=== PATIENT | female | born 1980 | race Caucasian/White ===

== ENCOUNTER → 2017-09-10 | Outpatient (CLI) | payer OTHER ==
[~2017-09-10] MED LIST: ACET325 PO; ALBU90OI INH; BCP; CETI5 PO; CLARITIN10 MG PO; FAMO20 PO; L-Lysine500 M1 PO; LAMO100 PO; LORA1 PO; OMEP20ER PO; OMEP40CA12 PO; PRED20 PO; PRENZ PO; PROM25 PO; SUCR1 PO
[2017-09-16 11:58] LABS: HPV Genotype 16 Not Detected (NOTDET); HPV Genotype 18 Not Detected (NOTDET)
[2017-09-22 10:13] LABS: HPV High Risk Other Not Detected (NOTDET)
== END ==
LOC: LAB SRC 08:46 → LAB SHORT 08:46
PROVIDERS: Registered Nurse
DX: Z12.4 Encounter for screening for malignant neoplasm of cervix (principal)
CPT/HCPCS: 87624; G0123

== ENCOUNTER → 2020-07-16 | Outpatient (CLI) | payer OTHER ==
[2020-07-17 13:11] LABS: HPV 16 Negative (Negative); HPV 18 Negative (Negative); HPV OTHER HR TYPES Negative (Negative)
== END | disposition home or self-care (01) ==
LOC: LAB 11:45 → LAB SHORT 11:45
PROVIDERS: Registered Nurse
DX: Z12.4 Encounter for screening for malignant neoplasm of cervix (principal)
CPT/HCPCS: 87624; G0123

== ENCOUNTER → 2022-10-27 | Outpatient (CLI) | payer OTHER ==
[~2022-10-27] MED LIST changes: +ONDA4ODT MM
[2022-10-27 18:07] LABS: Source, Urine Clean Catch
[2022-10-27 18:13] LABS: Appearance, Urine Hazy (Clear); Bilirubin, Urine Neg (Neg); Blood, Urine 4+ (Neg); Glucose Qualitative, Urine Neg (Neg); Ketones, Urine 2+ (Neg); Leukocyte Esterase, Urine 2+ (Neg); Nitrite, Urine Pos (Neg); Protein, Urine 1+ (Neg); Urobilinogen, Urine NORM (Normal); pH, Urine 6.5 (5.0-8.0)
[2022-10-27 18:19] LABS: Color, Urine Pale Yellow (P-Yellow)
[2022-10-27 18:20] LABS: Bacteria Many /hpf; Squamous Epithelial Cells Few /hpf (Few); White Blood Cells, Urine 50-100 /hpf (0-5)
== END | disposition home or self-care (01) ==
LOC: LAB 12:30 → LAB SHORT 12:30
PROVIDERS: Registered Nurse
DX: N39.0 Urinary tract infection, site not specified (principal)
CPT/HCPCS: 81001; 87077; 87086; 87186

== ENCOUNTER 2023-07-26 11:35 | Day surgery (SDC) | payer OTHER ==
[~2023-07-26] VITALS: Ht 167.6 cm; Wt 97.2 kg
[~2023-07-26 11:35] MED LIST changes: +COENZYME Q-1030 MG PO; +FLONASE ALLERG9.9 M2; +HYDCHL25 PO; +Hair, Skin & N1 EACH PO; +METF500 PO; +METO50ER PO; +OLAN5 PO; +Prinivil10 MG PO; +ROSU10TA PO; +VALP250
[2023-07-26] MEDS ORDERED: Depakene250 MG PO (12:20)
--- NOTE | 2023-07-26 13:41 | NUR ---
07/26/23 1341 Cathie Feliciano ABDOMEN PREPPED BY [email or web address] WITH DURAPREP GELY AREA AND SURROUNDING AREA WITH POVIDONE IODINE BY [email or web address]
[2023-07-26 14:43] VITALS: BP 119/76
== END 2023-07-26 14:53 | disposition home or self-care (01) ==
LOC: ORSCSDS 11:35
PROVIDERS: Obstetrics & Gynecology
PROC: 0UT74ZZ Resection of Bilateral Fallopian Tubes, Percutaneous Endoscopic Approach (ICD-10-PCS; principal; 2023-07-26 13:00)
PROC: 0UT24ZZ Resection of Bilateral Ovaries, Percutaneous Endoscopic Approach (ICD-10-PCS; principal; 2023-07-26 13:00)
DX: Z85.3 Personal history of malignant neoplasm of breast (principal); Z17.0 Estrogen receptor positive status [ER+]; Z30.2 Encounter for sterilization; I10 Essential (primary) hypertension; F17.210 Nicotine dependence, cigarettes, uncomplicated; F31.9 Bipolar disorder, unspecified; E66.9 Obesity, unspecified; Z68.35 Body mass index [BMI] 35.0-35.9, adult; Z79.899 Other long term (current) drug therapy
CPT/HCPCS: 82947; 88305; J0171; J2250; J2795; J7120

== ENCOUNTER 2023-09-22 07:56 | Day surgery (SDC) | payer OTHER ==
[~2023-09-22] VITALS: Ht 167.6 cm; Wt 100.7 kg
[~2023-09-22 07:56] MED LIST changes: +Depakene250 MG PO; +SPIR25 PO
[2023-09-22] MEDS ORDERED: CeFAZolin Sodium 2,000 MG VIAL ONE (08:31)
[2023-09-22] MEDS ORDERED: NS 50 ML IV ONE (08:32)
[2023-09-22] MEDS ORDERED: LETROZOLE2.5 M3 PO (08:35)
[2023-09-22] MEDS ORDERED: Methylene Blue 1% 100 MG/10 ML VIAL ONE (08:38)
[2023-09-22] MEDS ORDERED: Lidocaine 1%-Epineph 1:100000 20 ML MDV ONE (08:39)
[2023-09-22] MEDS ORDERED: Ropivacaine 0.5% HCl/Pf 5 MG/ML 20ML VIAL ONE ×2 (08:41→10:41)
[2023-09-22] MEDS ORDERED: Lactated Ringer's 1,000 ML IV ONE ×3 (09:09→11:44)
[2023-09-22] MEDS ORDERED: Lidocaine HCl/Pf 1% 5 ML VIAL ONE (09:14)
--- NOTE | 2023-09-22 09:30 | NUR ---
09/22/23 0930 Di Prince PATIENT INTO PRE-OP EARLY AT 0820 TO GET VITALS DONE PRIOR TO APPOINTMENT AT IMAGING. 0920: PATIENT RETURNED FROM IMAGING.
[2023-09-22] MEDS ORDERED: Midazolam HCl 1MG / ML 2ML Vial ONE (10:17)
[2023-09-22] MEDS ORDERED: FentaNYL Citrate 50 MCG/ML 2 ML Injection ONE ×4 (10:17→12:22)
[2023-09-22] MEDS ORDERED: propofoL 20 ML IV ONE (10:17)
[2023-09-22] MEDS ORDERED: Ondansetron HCl 2 MG / ML 2ML Vial ONE ×2 (10:20→13:47)
[2023-09-22] MEDS ORDERED: Dexamethasone Sod Phos 10 MG/ML 1ML VIAL ONE (10:20)
[2023-09-22] MEDS ORDERED: Methylene Blue 1% 100 MG/10 ML VIAL XX ONE (10:51)
[2023-09-22 13:44] VITALS: BP 137/90
[2023-09-22] MEDS ORDERED: HYDROcodone 5-APAP 325 TAB ONE (13:48)
== END 2023-09-22 14:53 | disposition home or self-care (01) ==
LOC: ORSCSDS 07:56 → NM 09:00 → ORSCSDS 10:00
DX: C50.811 Malignant neoplasm of overlapping sites of right female breast (principal); C77.3 Secondary and unspecified malignant neoplasm of axilla and upper limb lymph nodes; Z17.0 Estrogen receptor positive status [ER+]; E11.9 Type 2 diabetes mellitus without complications; G47.33 Obstructive sleep apnea (adult) (pediatric); F17.210 Nicotine dependence, cigarettes, uncomplicated; Z79.84 Long term (current) use of oral hypoglycemic drugs; Z79.899 Other long term (current) drug therapy; I10 Essential (primary) hypertension; K21.9 Gastro-esophageal reflux disease without esophagitis; E78.5 Hyperlipidemia, unspecified; F31.81 Bipolar II disorder; E28.2 Polycystic ovarian syndrome; Z68.35 Body mass index [BMI] 35.0-35.9, adult
CPT/HCPCS: 38792; 76098; 82947; 88307; 88329; 88360; 88374; A9270; A9520; J0690; J1100; J2001; J2250; J2405; J2704; J2795; J3010; J7120; Q9968

== ENCOUNTER 2023-10-18 07:24 | Day surgery (SDC) | payer OTHER ==
[~2023-10-18] VITALS: Ht 167.6 cm; Wt 101.2 kg
[2023-10-18] VITALS (11 sets, daily range): BP systolic 82–134; BP diastolic 46–90
[~2023-10-18 07:24] MED LIST changes: +CeFAZolin Sodium 2,000 MG in NS 100 ML IV SCH; +LETROZOLE2.5 M3 PO; +Lactated Ringer's 1,000 ML IV SCH
[2023-10-18] MEDS ORDERED: Ipratropium/Albuterol SulF 2.5-0.5MG/3 ML Amp INH SCH (08:50)
[2023-10-18] MEDS ORDERED: propofoL 20 ML IV ONE (08:51)
[2023-10-18] MEDS ORDERED: Midazolam HCl 1MG / ML 2ML Vial ONE (08:51)
[2023-10-18] MEDS ORDERED: FentaNYL Citrate 50 MCG/ML 2 ML Injection ONE (08:51)
--- NOTE | 2023-10-18 09:06 | NUR ---
Ambulatory in Day Surgery History, Chart, Medications and Allergies reviewed before start of procedure. Pre-Op teaching done. Pt verbalizes understanding. Patient States Post-Procedure ride home has been arranged. Inspiratory/expiratory wheeze, duo-neb given per orders. Lungs clear post breathing tx.
[2023-10-18] MEDS ORDERED: Bupivacaine 0.5% HCl 5 MG/ML 30MLVIAL ONE (09:21)
[2023-10-18] MEDS ORDERED: Dexamethasone Sod Phos 10 MG/ML 1ML VIAL ONE (09:31)
[2023-10-18] MEDS ORDERED: Ketorolac Tromethamine 30mg Vial ONE (09:31)
[2023-10-18] MEDS ORDERED: Ondansetron HCl 2 MG / ML 2ML Vial ONE (09:31)
[2023-10-18] MEDS ORDERED: HYDROcodone 5-APAP 325 TAB PO PRN (10:45)
--- NOTE | 2023-10-18 11:31 | NUR ---
Discharge instructions reviewed with patient. Patient verbalizes understanding. Copy given to patient to take home. 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 Dressing C/D/I, breast binder in place. Patient States Post-Procedure ride home has been arranged. Discharged via wheelchair to private car for ride home.
[2023-11-03] MEDS ORDERED: LETR2.5 PO (12:26)
[2023-11-03] MEDS ORDERED: VITAMIN D325 MC3 PO (12:30)
== END 2023-10-18 11:30 | disposition home or self-care (01) ==
LOC: ORSCMMR 07:24 → ORD 10:00 → ORSCMMR 10:00
PROVIDERS: Surgery
PROC: 0HBT0ZZ Excision of Right Breast, Open Approach (ICD-10-PCS; principal; 2023-10-18 08:45)
DX: C50.911 Malignant neoplasm of unspecified site of right female breast (principal); R92.0 Mammographic microcalcification found on diagnostic imaging of breast; Z17.0 Estrogen receptor positive status [ER+]; G47.33 Obstructive sleep apnea (adult) (pediatric); F17.210 Nicotine dependence, cigarettes, uncomplicated; E11.9 Type 2 diabetes mellitus without complications; Z79.84 Long term (current) use of oral hypoglycemic drugs; Z79.899 Other long term (current) drug therapy; E66.9 Obesity, unspecified; Z68.35 Body mass index [BMI] 35.0-35.9, adult
CPT/HCPCS: 82947; 88307; A9270; J0690; J1100; J1885; J2250; J2405; J2704; J3010; J7120

== ENCOUNTER 2024-03-30 12:49 | Emergency (ER) | payer OTHER ==
[~2024-03-30] VITALS: Ht 167.6 cm; Wt 102.1 kg
[~2024-03-30 12:49] MED LIST changes: -CeFAZolin Sodium 2,000 MG in NS 100 ML IV SCH; +LETR2.5 PO; -Lactated Ringer's 1,000 ML IV SCH; +VITAMIN D325 MC3 PO
[2024-03-30 13:24] LABS: BASOPHILS ABSOLUTE AUTO 0.07 K/mm3 (0.00-0.23); BASOPHILS PERCENT AUTO 1 % (0-2); EOSINOPHILS ABSOLUTE AUTO 0.23 K/mm3 (0.00-0.68); EOSINOPHILS PERCENT AUTO 2 % (0-6); Hematocrit 36.6 % (33.0-51.0); Hemoglobin 12.9 g/dL (11.5-16.0); IMMATURE GRAN ABSOLUTE AUTO 0.12 K/mm3 (0.00-0.10); IMMATURE GRAN PERCENT AUTO 1 % (0-1); LYMPHOCYTES ABSOLUTE AUTO 3.02 K/mm3 (0.84-5.20); LYMPHOCYTES PERCENT AUTO 29 % (21-46); MONOCYTES ABSOLUTE AUTO 2.37 K/mm3 (0.16-1.47); MONOCYTES PERCENT AUTO 23 % (4-13); Mean Corpuscular HGB 34.8 pg (26.0-34.0); Mean Corpuscular HGB Conc 35.2 g/dL (31.5-36.5); Mean Corpuscular Volume 99 fL (80-100); Mean Platelet Volume 8.7 fL (9.1-12.4); NEUTROPHILS ABSOLUTE AUTO 4.71 K/mm3 (1.96-9.15); NEUTROPHILS PERCENT AUTO 45 % (41-73); NRBC ABSOLUTE 0.02 K/mm3 (0.00-0.02); NRBC Auto 0.2 /100 WBC (0.0-0.2); Platelet Count 319 K/mm3 (150-400); RDW Coefficient Variation 21.5 % (11.7-14.2); RDW Standard Deviation 75.9 fL (35.1-46.3); Red Blood Cell Count 3.71 M/mm3 (3.80-5.20); White Blood Cell Count 10.52 K/mm3 (4.00-11.30)
[2024-03-30 13:49] LABS: Albumin, Blood 3.5 g/dL (3.4-5.0); Albumin/Globulin Ratio 0.8 (0.8-1.8); Bilirubin, Total 0.3 mg/dL (0.1-1.0); Bun/Creatinine Ratio 10.7 (12.0-20.0); Calcium, Blood 9.7 mg/dL (8.5-10.1); Creatinine, Blood 0.56 mg/dL (0.40-1.00); Globulin, Blood 4.3 g/dL (2.2-4.0); Magnesium, Blood 1.8 mg/dL (1.6-2.4); Potassium, Blood 3.7 mmol/L (3.5-5.5); Total Protein, Blood 7.8 g/dL (6.4-8.2)
[2024-03-30] MEDS ORDERED: LORazepam 2 MG/ML 1ML Injection IV ONE ×2 (14:40→15:20)
[2024-03-30] MEDS ORDERED: IVABRADINE HCL5 MG PO (14:56)
[2024-03-30 15:05] LABS: Free Thyroxine 1.16 ng/dL (0.70-1.60); Magnesium, Blood 1.9 mg/dL (1.6-2.4); Thyroid Stimulating Hormone 0.792 uIU/mL (0.360-4.800)
[2024-03-30] MEDS ORDERED: Nicotine Polacrilex 2 MG Gum PO PRN (19:05)
[2024-03-31] VITALS: BP 115/76
== END 2024-03-31 00:46 | disposition short-term general hospital (02) ==
LOC: ER 12:49
PROVIDERS: Emergency Medicine; Physician Assistant
DX: I60.9 Nontraumatic subarachnoid hemorrhage, unspecified (principal); C79.31 Secondary malignant neoplasm of brain; C79.51 Secondary malignant neoplasm of bone; C50.911 Malignant neoplasm of unspecified site of right female breast; K21.9 Gastro-esophageal reflux disease without esophagitis; F17.210 Nicotine dependence, cigarettes, uncomplicated; Z79.84 Long term (current) use of oral hypoglycemic drugs; Z79.51 Long term (current) use of inhaled steroids; Z79.899 Other long term (current) drug therapy; Z91.041 Radiographic dye allergy status; Z91.018 Allergy to other foods
CPT/HCPCS: 70450; 80053; 81025; 83735; 84439; 84443; 85025; 93005; 93010; 96365; 96375; 99285-25; A9270; J1100; J2060

== ENCOUNTER → 2024-04-08 | Outpatient (CLI) | payer OTHER ==
[~2024-04-08] MED LIST changes: +IVABRADINE HCL5 MG PO
== END | disposition home or self-care (01) ==
LOC: LAB SHORT 10:33 → LAB 10:33
DX: N39.0 Urinary tract infection, site not specified (principal)
CPT/HCPCS: 87077; 87086; 87186

== ENCOUNTER → 2024-06-12 | Outpatient (CLI) | payer OTHER | END | disposition home or self-care (01) | LOC: LAB 09:45 → LAB SHORT 09:45 | DX: T81.49XA Infection following a procedure, other surgical site, initial encounter (principal) | CPT/HCPCS: 87070; 87205 ==

== ENCOUNTER → 2024-06-14 | Outpatient (CLI) | payer OTHER | END | disposition home or self-care (01) | LOC: LAB SHORT 15:11 → LAB 15:11 | DX: R30.0 Dysuria (principal) | CPT/HCPCS: 87077; 87086; 87186 ==

== ENCOUNTER 2024-07-27 01:19 | Day surgery (SDC) | payer OTHER | END 2024-07-27 23:00 | disposition home or self-care (01) | LOC: WOUND 01:19 | DX: T81.31XD Disruption of external operation (surgical) wound, not elsewhere classified, subsequent encounter (principal); F17.200 Nicotine dependence, unspecified, uncomplicated; G47.30 Sleep apnea, unspecified; E11.9 Type 2 diabetes mellitus without complications; C50.111 Malignant neoplasm of central portion of right female breast; Z91.041 Radiographic dye allergy status; Y83.8 Other surgical procedures as the cause of abnormal reaction of the patient, or of later complication, without mention of misadventure at the time of the procedure | CPT/HCPCS: G0463 ==

== ENCOUNTER → 2024-07-29 | Outpatient (CLI) | payer OTHER ==
[2024-07-29 14:39] LABS: Source, Urine Clean Catch
[2024-07-29 14:54] LABS: Appearance, Urine Clear (Clear); Color, Urine Yellow (P-Yellow); Leukocyte Esterase, Urine Trace (Neg); Specific Gravity, Urine 1.005 (1.003-1.022); pH, Urine 6.5 (5.0-8.0)
[2024-07-29 14:55] LABS: Bacteria Not Seen /hpf; Bilirubin, Urine Neg (Neg); Blood, Urine Neg (Neg); Glucose Qualitative, Urine Neg (Normal); Ketones, Urine Neg (Neg); Nitrite, Urine Neg (Neg); Protein, Urine Neg (Neg); Squamous Epithelial Cells Few /hpf (Few); Urobilinogen, Urine NORM (Normal)
== END ==
LOC: LAB 14:37 → LAB SHORT 14:37
PROVIDERS: Emergency Medicine
DX: R30.0 Dysuria (principal)
CPT/HCPCS: 81001; 87086

== ENCOUNTER 2024-08-02 05:24 | Day surgery (SDC) | payer OTHER | END 2024-08-02 23:00 | disposition home or self-care (01) | LOC: WOUND 05:24 | DX: T81.328A Disruption or dehiscence of closure of other specified internal operation (surgical) wound, initial encounter (principal); Y83.8 Other surgical procedures as the cause of abnormal reaction of the patient, or of later complication, without mention of misadventure at the time of the procedure; C50.111 Malignant neoplasm of central portion of right female breast | CPT/HCPCS: G0463 ==

== ENCOUNTER 2024-08-08 09:29 | Day surgery (SDC) | payer OTHER | END 2024-08-08 23:00 | disposition home or self-care (01) | LOC: WOUND 09:29 | DX: T81.31XD Disruption of external operation (surgical) wound, not elsewhere classified, subsequent encounter (principal); C50.111 Malignant neoplasm of central portion of right female breast; Y83.8 Other surgical procedures as the cause of abnormal reaction of the patient, or of later complication, without mention of misadventure at the time of the procedure | CPT/HCPCS: G0463 ==

== ENCOUNTER 2024-08-18 04:02 | Day surgery (SDC) | payer OTHER | END 2024-08-18 23:00 | disposition home or self-care (01) | LOC: WOUND 04:02 | DX: T81.31XA Disruption of external operation (surgical) wound, not elsewhere classified, initial encounter (principal); C50.111 Malignant neoplasm of central portion of right female breast; Y83.8 Other surgical procedures as the cause of abnormal reaction of the patient, or of later complication, without mention of misadventure at the time of the procedure ==

== ENCOUNTER 2024-08-24 01:04 | Day surgery (SDC) | payer OTHER | END 2024-08-24 23:00 | disposition home or self-care (01) | LOC: WOUND 01:04 | DX: T81.31XA Disruption of external operation (surgical) wound, not elsewhere classified, initial encounter (principal); C50.111 Malignant neoplasm of central portion of right female breast ==

== ENCOUNTER 2024-08-29 00:29 | Day surgery (SDC) | payer OTHER | END 2024-08-29 23:00 | disposition home or self-care (01) | LOC: WOUND 00:29 | DX: T81.31XD Disruption of external operation (surgical) wound, not elsewhere classified, subsequent encounter (principal); C50.111 Malignant neoplasm of central portion of right female breast | CPT/HCPCS: G0463 ==

== ENCOUNTER 2024-09-05 03:35 | Day surgery (SDC) | payer OTHER ==
[2024-09-13] MEDS ORDERED: ZOLPIDEM TARTRA10 MG PO (22:03)
[2024-09-13] MEDS ORDERED: FURO20 (22:04)
[2024-09-13] MEDS ORDERED: POTA10T PO (22:06)
[2024-09-13] MEDS ORDERED: LEVE500 PO (22:15)
[2024-09-13] MEDS ORDERED: LORA1 PO (22:19)
[2024-09-13] MEDS ORDERED: DECADRON4 M1 (22:20)
[2024-09-13] MEDS ORDERED: OLAN2.5 PO (22:20)
[2024-09-13] MEDS ORDERED: OXYC10TA19 PO (22:20)
[2024-09-13] MEDS ORDERED: Cyclobenzaprine5 MG (22:21)
[2024-09-13] MEDS ORDERED: ONDA4 SL (22:21)
[2024-09-14] MEDS ORDERED: DOCU100 PO (01:09)
[2024-09-14] MEDS ORDERED: CALCIUM CARBON500 M1 PO (01:12)
[2024-09-15] MEDS ORDERED: BACTRIM DS TAB1 EAC6 PO (12:37)
[2024-09-15] MEDS ORDERED: VISBIOME 112.51 EACH PO (12:38)
== END 2024-09-05 23:09 | disposition home or self-care (01) ==
LOC: WOUND 03:35
DX: T81.328A Disruption or dehiscence of closure of other specified internal operation (surgical) wound, initial encounter (principal); C50.111 Malignant neoplasm of central portion of right female breast; L98.499 Non-pressure chronic ulcer of skin of other sites with unspecified severity
CPT/HCPCS: G0463

== ENCOUNTER 2024-09-11 01:48 | Day surgery (SDC) | payer OTHER | END 2024-09-11 23:20 | disposition home or self-care (01) | LOC: WOUND 01:48 | DX: T81.31XD Disruption of external operation (surgical) wound, not elsewhere classified, subsequent encounter (principal); C50.111 Malignant neoplasm of central portion of right female breast; Y83.8 Other surgical procedures as the cause of abnormal reaction of the patient, or of later complication, without mention of misadventure at the time of the procedure | CPT/HCPCS: 87070; 87077; 87186; 87205; G0463 ==

== ENCOUNTER 2024-09-13 17:56 | Inpatient (IN) | payer OTHER ==
[~2024-09-13] VITALS: Ht 167.6 cm; Wt 105.6 kg
[~2024-09-13 17:56] MED LIST changes: +Furosemide 20 MG Tab PO SCH; +Insulin Regular 100 UNIT/ML 10ML Vial SC SCH
[2024-09-13 19:04] LABS: Influenza A, PCR NEGATIVE (NEGATIVE); Influenza B, PCR NEGATIVE (NEGATIVE); Resp Syncytial Virus, PCR NEGATIVE (NEGATIVE); SARS-Cov-2 (COVID-19) PCR, MMC NEGATIVE (NEGATIVE)
[2024-09-13 19:16] LABS: BASOPHILS ABSOLUTE AUTO 0.05 K/mm3 (0.00-0.23); BASOPHILS PERCENT AUTO 1 % (0-2); EOSINOPHILS ABSOLUTE AUTO 0.05 K/mm3 (0.00-0.68); EOSINOPHILS PERCENT AUTO 1 % (0-6); Hemoglobin 11.4 g/dL (11.5-16.0); IMMATURE GRAN ABSOLUTE AUTO 0.02 K/mm3 (0.00-0.10); IMMATURE GRAN PERCENT AUTO 0 % (0-1); LYMPHOCYTES ABSOLUTE AUTO 2.37 K/mm3 (0.84-5.20); LYMPHOCYTES PERCENT AUTO 33 % (21-46); MONOCYTES PERCENT AUTO 25 % (4-13); Mean Corpuscular HGB 30.7 pg (26.0-34.0); Mean Corpuscular HGB Conc 32.6 g/dL (31.5-36.5); Mean Corpuscular Volume 94 fL (80-100); Mean Platelet Volume 9.1 fL (9.1-12.4); NEUTROPHILS ABSOLUTE AUTO 3.01 K/mm3 (1.96-9.15); NEUTROPHILS PERCENT AUTO 41 % (41-73); Platelet Count 203 K/mm3 (150-400); RDW Coefficient Variation 19.6 % (11.7-14.2); RDW Standard Deviation 67.5 fL (35.1-46.3); Red Blood Cell Count 3.71 M/mm3 (3.80-5.20)
[2024-09-13 19:38] LABS: Albumin, Blood 2.7 g/dL (3.4-5.0); Albumin/Globulin Ratio 0.8 (0.8-1.8); Bilirubin, Total 0.3 mg/dL (0.1-1.0); Bun/Creatinine Ratio 9.8 (12.0-20.0); Calcium, Blood 9.8 mg/dL (8.5-10.1); Creatinine, Blood 0.51 mg/dL (0.40-1.00); Globulin, Blood 3.4 g/dL (2.2-4.0); Potassium, Blood 3.9 mmol/L (3.5-5.5); Total Protein, Blood 6.1 g/dL (6.4-8.2)
[2024-09-13] MEDS ORDERED: NS 1,000 ML IV SCH ×2 (19:50→22:50)
[2024-09-13] MEDS ORDERED: Nicotine 14 MG PATCH TOP ONE (21:45)
[2024-09-13] MEDS ORDERED: ZOLPIDEM TARTRA10 MG PO ×2 (22:03)
[2024-09-13] MEDS ORDERED: FURO20 ×2 (22:04)
[2024-09-13] MEDS ORDERED: POTA10T PO ×2 (22:06)
[2024-09-13] MEDS ORDERED: LEVE500 PO ×2 (22:15)
[2024-09-13] MEDS ORDERED: LORA1 PO ×2 (22:19)
[2024-09-13] MEDS ORDERED: DECADRON4 M1 ×2 (22:20)
[2024-09-13] MEDS ORDERED: OLAN2.5 PO ×2 (22:20)
[2024-09-13] MEDS ORDERED: OXYC10TA19 PO ×2 (22:20)
[2024-09-13] MEDS ORDERED: Cyclobenzaprine5 MG ×2 (22:21)
[2024-09-13] MEDS ORDERED: ONDA4 SL ×2 (22:21)
[2024-09-13] MEDS ORDERED: Ondansetron 4 MG TAB PO PRN (22:50)
[2024-09-13] MEDS ORDERED: LORazepam 1 MG Tab PO PRN (22:50)
[2024-09-13] MEDS ORDERED: FLU VACC TS2024-25(6MOS UP)/PF 45 MCG/0.5 ML SYRINGE IM ONE (22:50)
[2024-09-13] MEDS ORDERED: LORazepam 2 MG/ML 1ML Injection IM PRN (22:50)
[2024-09-13] MEDS ORDERED: ChlordiazePOXIDE 25 MG Cap PO PRN (22:50)
[2024-09-13] MEDS ORDERED: LORazepam 2 MG/ML 1ML Injection IV PRN (22:55)
[2024-09-13] MEDS ORDERED: Thiamine HCl 100 MG Tab PO SCH (23:00)
[2024-09-13] MEDS ORDERED: Folic Acid 1 MG TAB PO SCH (23:00)
[2024-09-13 23:03] LABS: C-REACTIVE PROTEIN, EXT RANGE 3.12 mg/dL (0.000-0.300)
[2024-09-13] MEDS ORDERED: OxyCODONE HCL 5 MG TAB PO PRN (23:40)
[2024-09-13] MEDS ORDERED: Dexamethasone 2 MG Tab PO PRN (23:45)
[2024-09-13] MEDS ORDERED: Cyclobenzaprine HCl 10 MG Tab PO PRN (23:45)
[2024-09-14] MEDS ORDERED: NS 1,000 ML IV ONE (00:08)
[2024-09-14] MEDS ORDERED: Fluticasone 0.05% Nasal Spray PRN (00:15)
[2024-09-14] MEDS ORDERED: OLANZapine 5 MG Tab PO PRN (00:30)
[2024-09-14] MEDS ORDERED: DOCU100 PO ×2 (01:09)
[2024-09-14] MEDS ORDERED: CALCIUM CARBON500 M1 PO ×2 (01:12)
[2024-09-14 04:43] LABS: BASOPHILS ABSOLUTE AUTO 0.04 K/mm3 (0.00-0.23); BASOPHILS PERCENT AUTO 1 % (0-2); EOSINOPHILS ABSOLUTE AUTO 0.04 K/mm3 (0.00-0.68); EOSINOPHILS PERCENT AUTO 1 % (0-6); Hematocrit 31.3 % (33.0-51.0); Hemoglobin 10.1 g/dL (11.5-16.0); IMMATURE GRAN ABSOLUTE AUTO 0.03 K/mm3 (0.00-0.10); IMMATURE GRAN PERCENT AUTO 0 % (0-1); LYMPHOCYTES ABSOLUTE AUTO 2.25 K/mm3 (0.84-5.20); LYMPHOCYTES PERCENT AUTO 32 % (21-46); MONOCYTES ABSOLUTE AUTO 1.85 K/mm3 (0.16-1.47); MONOCYTES PERCENT AUTO 26 % (4-13); Mean Corpuscular HGB 30.4 pg (26.0-34.0); Mean Corpuscular HGB Conc 32.3 g/dL (31.5-36.5); Mean Corpuscular Volume 94 fL (80-100); Mean Platelet Volume 9.7 fL (9.1-12.4); NEUTROPHILS ABSOLUTE AUTO 2.87 K/mm3 (1.96-9.15); NEUTROPHILS PERCENT AUTO 41 % (41-73); Platelet Count 200 K/mm3 (150-400); RDW Coefficient Variation 19.8 % (11.7-14.2); RDW Standard Deviation 67.5 fL (35.1-46.3); Red Blood Cell Count 3.32 M/mm3 (3.80-5.20); White Blood Cell Count 7.08 K/mm3 (4.00-11.30)
[2024-09-14 04:49] VITALS: BP 133/71
[2024-09-14 04:56] LABS: International Normalized Ratio 1.06; Prothrombin Time Results 11.3 Sec (9.7-11.5)
[2024-09-14 05:16] LABS: Albumin, Blood 2.5 g/dL (3.4-5.0); Albumin/Globulin Ratio 0.8 (0.8-1.8); Bilirubin, Total 0.3 mg/dL (0.1-1.0); Bun/Creatinine Ratio 8.9 (12.0-20.0); Creatinine, Blood 0.45 mg/dL (0.40-1.00); Globulin, Blood 3.1 g/dL (2.2-4.0); Potassium, Blood 3.7 mmol/L (3.5-5.5); Total Protein, Blood 5.6 g/dL (6.4-8.2)
[2024-09-14] MEDS ORDERED: Omeprazole 20 MG CapCR PO SCH (06:00)
--- NOTE | 2024-09-14 06:22 | NUR ---
CONTROLLED PT HOME MEDS SENT TO PHARMACY: OXYCODONE, LORAZEPAM, ZOLPIDEM. PHARMACY RECEIPT IN PT PHYSICAL CHART. PT AWARE OF STORAGE OF MEDS IN PHARMACY AND WILL HAVE FAMILY OBTAIN THEM SOON POSSIBLE.
--- NOTE | 2024-09-14 06:23 | NUR ---
PT DID REQUIRE SUPPLEMENTAL O2 WHILE SLEEPING AND HAS MAINTAINED GOOD O2 SATS SINCE. PT OTHERWISE STABLE SINCE ADMIT. PT WAS GIVEN OXYCODONE AND ZOFRAN D/T PAIN AND NAUSEA. PT STATES SHE TAKES BOTH FAIRLY REGULARLY AT HOME. PT REPORTS NO WITHDRAWAL ISSUES WITH STOPPING ETOH IN THE PAST FOR LONG PERIODS OF TIME. PT CIWA 0-2. PT RT ARM EDEMATOUS AND WAS ELEVATED ON PILLOWS. SIGN IN PLACE FOR NO BP/BLOOD DRAWS ON RIGHT ARM D/T HX OF MASTECTOMY. PT DOES HAVE HX OF BRAIN TUMOR WITH RESECTION AND HAS MILD DEFICITS ASSOCIATED WITH THAT SUCH FORGETFULNESS AND WORD FINDING. PT IS AOX4 OTHERWISE, SBA-FAIRLY STEADY ON FEET, USES CALL LIGHT APPROPRIATELY.
--- NOTE | 2024-09-14 07:12 | NUR ---
ASSUMPTION NOTE: THIS RN TO ASSUME CARE. BEDSIDE SHIFT REPORT WAS GIVEN & PATIENT STATED SHE WAS REFFERED HERE FROM HER PRIMARY CARE PROVIDER AFTER BEING PRESCRIBED OXYGEN WITH SATTING IN THE 80'S & BEING DEHYDRATED. PATIENT HAS CALL LIGHT WITHIN REACH, BED IN LOWEST POSITION & STATING NOTHING IS NEEDED AT THIS TIME.
[2024-09-14 07:24] VITALS: BP 138/78
[2024-09-14] MEDS ORDERED: Misc. Capsule PO SCH (09:00)
[2024-09-14] MEDS ORDERED: Potassium Chloride 10 Meq Tablet SA PO SCH (09:00)
[2024-09-14] MEDS ORDERED: Cholecalciferol 1000 Unit Tablet (=25MCG) PO SCH (09:00)
[2024-09-14] MEDS ORDERED: LevETIRAcetam 500 MG Tab PO SCH (09:00)
[2024-09-14] MEDS ORDERED: Multivitamins/Minerals TAB PO SCH (09:00)
[2024-09-14] MEDS ORDERED: Calcium Carbonate 1,250 MG TABLET PO SCH (09:00)
[2024-09-14] MEDS ORDERED: Enoxaparin 40 MG/0.4 ML SYR SC SCH (09:00)
[2024-09-14] MEDS ORDERED: OLANZapine 5 MG Tab PO SCH ×2 (09:00→21:00)
[2024-09-14] MEDS ORDERED: Metoprolol Succinate 50 MG TABCR PO SCH (09:00)
[2024-09-14] MEDS ORDERED: Docusate Sodium 100 MG Cap PO SCH (09:00)
[2024-09-14] MEDS ORDERED: Valproic Acid 250 MG Cap PO SCH (09:00)
--- NOTE | 2024-09-14 10:20 | NUR ---
MD BALDWIN: MD BENNETT ROUNDED ON PATIENT AND UPDATED ON PLAN. PATIENT TO GET A V/Q SCAN TODAY AND LOOKING AT STAYING FOR A COUPLE MORE DAYS. PATIENT UPDATED MD ABOUT MEDICATION LIST AND MD TO TAKE A LOOK. WILL BE STARTED ON BACTRIUM DUE TO FINDING OUT HER RIGHT MASTECTOMY RECENTLY WAS SWABBED AND POSITIVE FOR BACTERIA, LOOK IN THE CHART. PATIENT AWARE OF NEW MEDICATIONS TO BE STARTED AND COOPERATIVE WITH THE PLAN OF CARE.
[2024-09-14 10:22] LABS: Anti-Xa UFH, PHA Monitoring <0.10 IU/mL
[2024-09-14] MEDS ORDERED: Heparin Sodium 10,000 Units/ML 1ML MDV IV ONE (10:35)
[2024-09-14] MEDS ORDERED: Heparin Sodium,Porcine/0.5 NS 500 ML IV SCH (10:35)
[2024-09-14] MEDS ORDERED: Trimethoprim/Sulfamethoxazole DS Tab PO SCH (11:40)
[2024-09-14] MEDS ORDERED: Nicotine 14 MG PATCH TOP ONE (11:45)
[2024-09-14 12:00] VITALS: BP 119/88
--- NOTE | 2024-09-14 14:50 | NUR ---
WOUND CARE DONE: WOUND CARE ODERS WERE SENT OVER FROM CLINIC. CLEANSED WITH SALINE, WOUND CARE SPRAYED THEN PATTED DRY. AQUA CELL CUT INTO SMALL RECTANGLE AND PUSHED INTO THE WOUND USING A Q-TIP. EXUDRY PLACED ON TOP, PATIENT WEARS BRA TO KEEP EVERYTHING IN PLACE.
--- NOTE | 2024-09-14 15:44 | NUR ---
md called: this rn called md regarding patients results for lung scan being back.
[2024-09-14 17:35] VITALS: BP 137/83
--- NOTE | 2024-09-14 19:06 | NUR ---
SHIFT SUMMARY: PATIENT IS ALERT AND ORIENTED X4 AND ACTIVE IN HER CARE, IS ABLE TO MAKE NEEDS KNOWN AND USES CALL LIGHT APPROPRIATELY. PATIENT IS ON TELE SHOWING SINUS RYTHM WITH RATE IN 80'S. ON ROOM AIR SATTING >92%. PATIENT DENIED ANY CHEST PAIN/PRESSURE OR FEELING SHORT OF BREATH THROUGHOUT SHIFT. PATIENT HAD A LUNG PERFUSION SCAN DONE TODAY AND MD BENNETT CAME TO BEDSIDE TO NOTIFY PATIENT ABOUT RESULTS. WOUND CARE WAS DONE TODAY, SEE PREVIOUS NOTE FOR MORE INFORMATION. PATIENTS FAMILY WAS AT BEDSIDE THROUGHOUT SHIFT. PATIENT WAS FOUND TO HAVE MRSA IN THE WOUND, SEE PREVIOUS NOTES FOR MORE INFORAMTION. WAS STARTED ON BACTIRUM PER EMAR. PLAN WILL BE TO DISCHARGE TOMORROW WITH ANTIBIOTICS. PATIENT DENIED ANY NEED AT THIS TIME, HAS CALL LIGHT WITHIN REACH & BED IN LOWEST POSITION.
[2024-09-14 19:41] VITALS: BP 125/76
[2024-09-14] MEDS ORDERED: Zolpidem Tartrate 10 MG Tab PO SCH (21:00)
[2024-09-14] MEDS ORDERED: Rosuvastatin Calcium 10 MG Tab PO SCH (21:00)
[2024-09-14] MEDS ORDERED: Lactobacil 2-S.Thermo-Bifido 1 1 Cap PO SCH (21:00)
[2024-09-15 00:40] VITALS: BP 104/64
[2024-09-15 04:13] VITALS: BP 116/76
[2024-09-15 04:13] LABS: BASOPHILS ABSOLUTE AUTO 0.05 K/mm3 (0.00-0.23); BASOPHILS PERCENT AUTO 1 % (0-2); EOSINOPHILS ABSOLUTE AUTO 0.03 K/mm3 (0.00-0.68); EOSINOPHILS PERCENT AUTO 1 % (0-6); Hematocrit 31.1 % (33.0-51.0); Hemoglobin 9.9 g/dL (11.5-16.0); IMMATURE GRAN ABSOLUTE AUTO 0.02 K/mm3 (0.00-0.10); IMMATURE GRAN PERCENT AUTO 0 % (0-1); LYMPHOCYTES PERCENT AUTO 32 % (21-46); MONOCYTES ABSOLUTE AUTO 1.59 K/mm3 (0.16-1.47); MONOCYTES PERCENT AUTO 25 % (4-13); Mean Corpuscular HGB Conc 31.8 g/dL (31.5-36.5); Mean Corpuscular Volume 94 fL (80-100); Mean Platelet Volume 9.4 fL (9.1-12.4); NEUTROPHILS ABSOLUTE AUTO 2.57 K/mm3 (1.96-9.15); NEUTROPHILS PERCENT AUTO 41 % (41-73); Platelet Count 196 K/mm3 (150-400); RDW Coefficient Variation 20.2 % (11.7-14.2); RDW Standard Deviation 69.4 fL (35.1-46.3); White Blood Cell Count 6.26 K/mm3 (4.00-11.30)
--- NOTE | 2024-09-15 04:20 | NUR ---
SHIFT SUMMARY NO ACUTE CHANGES OVERNIGHT. VSS ON RA-2L VIA NC PRN. PLACED O2 ON PT THROUGHOUT NIGHT D/T DESATTING <92% PERIODICALLY WHILE SLEEPING. HOWEVER DOES WELL OFF WHEN AWAKE. PT REMAINS ON TELE NSR/ST 90s-100s. AFEBRILE. PT C/O PAIN THROUGHOUT NIGHT PARTICULARLY IN RIGHT SHOULDER. PRN OXYCODONE GIVEN WITH GOOD RELIEF. PT USING BATHROOM NEEDED WITH SBA. NO FURTHER QUESTIONS OR CONCERNS AT THIS TIME. RESTING COMFORTABLY IN BED WITH CALL BRADLEY WITHIN REACH. WILL CONTINUE WITH PLAN OF CARE.
[2024-09-15 04:49] LABS: Albumin, Blood 2.3 g/dL (3.4-5.0); Albumin/Globulin Ratio 0.8 (0.8-1.8); Bilirubin, Total 0.4 mg/dL (0.1-1.0); Bun/Creatinine Ratio 9.3 (12.0-20.0); Calcium, Blood 8.7 mg/dL (8.5-10.1); Creatinine, Blood 0.54 mg/dL (0.40-1.00); Globulin, Blood 2.9 g/dL (2.2-4.0); Potassium, Blood 3.9 mmol/L (3.5-5.5); Total Protein, Blood 5.2 g/dL (6.4-8.2)
[2024-09-15 07:11] VITALS: BP 113/76
--- NOTE | 2024-09-15 07:34 | NUR ---
AM Note Pt alert, oriented x4; calm and cooperative with care. Pt resting in bed. Up with 1 person assist. Pt able to make needs known. Pt reports inmproved pain after medications. Pt denies chest pain/pressure, sob, nasuea, dizziness and numb/tingling. Tele sinus 90's, bp stable. Spo2 >90% on ra, breathing even and unlabored. Abd soft, nontender, +bt t/o. Edema noted to RUE, wound has dressing in place. Other vss. No other acute changes noted. Will continue to monitor.
[2024-09-15] MEDS ORDERED: BACTRIM DS TAB1 EAC6 PO ×2 (12:37)
[2024-09-15] MEDS ORDERED: VISBIOME 112.51 EACH PO ×2 (12:38)
[2024-09-15 12:58] VITALS: BP 115/62
--- NOTE | 2024-09-15 13:21 | NUR ---
DISCHARGE THIS RN WAS BREAKING PRIMARY RN AND WENT OVER DISCHARGE INSTRUCTIONS WITH THE PT AND HER FAMILY MEMBER. ALL QUESTIONS ANSWERED. THIS RN D/C'D BOTH OF THE PT'S IV'S AND COMPLETED A FULL SET OF VITALS. VITALS REMAIN STABLE. ALL BELONGINGS AND MEDICATIONS LOCKED IN PHARMACY WERE RETURNED TO THE PT. SHE WAS WHEELED OUT BY THE MEDICAL RESEARCH SCIENTIST. NO FURTHER NOTES FROM THIS RN.
== END 2024-09-15 13:17 | disposition home or self-care (01) | DRG 175 ==
LOC: ER 17:56 → PCU 22:59
PROVIDERS: Family Medicine; Registered Nurse; Student in an Organized Health Care Education/Training Program; ADMIT Student in an Organized Health Care Education/Training Program
DX: I26.99 Other pulmonary embolism without acute cor pulmonale (principal); J96.01 Acute respiratory failure with hypoxia; T81.41XA Infection following a procedure, superficial incisional surgical site, initial encounter; C79.31 Secondary malignant neoplasm of brain; C79.51 Secondary malignant neoplasm of bone; F10.90 Alcohol use, unspecified, uncomplicated; K90.0 Celiac disease; E11.9 Type 2 diabetes mellitus without complications; I10 Essential (primary) hypertension; K21.9 Gastro-esophageal reflux disease without esophagitis; E78.5 Hyperlipidemia, unspecified; B95.62 Methicillin resistant Staphylococcus aureus infection as the cause of diseases classified elsewhere; G40.909 Epilepsy, unspecified, not intractable, without status epilepticus; E86.0 Dehydration; D64.9 Anemia, unspecified; C50.911 Malignant neoplasm of unspecified site of right female breast; I45.10 Unspecified right bundle-branch block; R74.01 Elevation of levels of liver transaminase levels; Z90.11 Acquired absence of right breast and nipple; Z91.041 Radiographic dye allergy status; Z91.018 Allergy to other foods; L65.8 Other specified nonscarring hair loss; T45.1X5A Adverse effect of antineoplastic and immunosuppressive drugs, initial encounter; Y83.8 Other surgical procedures as the cause of abnormal reaction of the patient, or of later complication, without mention of misadventure at the time of the procedure; Z71.41 Alcohol abuse counseling and surveillance of alcoholic; M62.838 Other muscle spasm; Z79.82 Long term (current) use of aspirin; Z79.84 Long term (current) use of oral hypoglycemic drugs; Z79.899 Other long term (current) drug therapy; Z90.89 Acquired absence of other organs; Z90.722 Acquired absence of ovaries, bilateral; Z90.79 Acquired absence of other genital organ(s); Z98.890 Other specified postprocedural states; Z99.81 Dependence on supplemental oxygen
CPT/HCPCS: 0241U; 36415; 78580; 80053; 82947; 84145; 84484; 85025; 85379; 85520; 85610; 85730; 86140; 93005; 93010; 94761; 94762; 96360-59; 97110; 97165; 99285-25; A9270; A9540; J1644; J1650; J2060; J7030

== ENCOUNTER 2024-09-18 02:38 | Day surgery (SDC) | payer OTHER ==
[~2024-09-18 02:38] MED LIST changes: +BACTRIM DS TAB1 EAC6 PO; +CALCIUM CARBON500 M1 PO; +Cyclobenzaprine5 MG; +DECADRON4 M1; +DOCU100 PO; +FURO20; -Furosemide 20 MG Tab PO SCH; -Insulin Regular 100 UNIT/ML 10ML Vial SC SCH; +LEVE500 PO; +OLAN2.5 PO; +ONDA4 SL; +OXYC10TA19 PO; +POTA10T PO; +VISBIOME 112.51 EACH PO; +ZOLPIDEM TARTRA10 MG PO
== END 2024-09-18 22:50 | disposition home or self-care (01) ==
LOC: WOUND 02:38
DX: T81.328A Disruption or dehiscence of closure of other specified internal operation (surgical) wound, initial encounter (principal); C50.111 Malignant neoplasm of central portion of right female breast
CPT/HCPCS: G0463

== ENCOUNTER 2024-09-26 02:26 | Day surgery (SDC) | payer OTHER | END 2024-09-26 23:00 | disposition home or self-care (01) | LOC: WOUND 02:26 | DX: T81.328D Disruption or dehiscence of closure of other specified internal operation (surgical) wound, subsequent encounter (principal); C50.111 Malignant neoplasm of central portion of right female breast; Y83.8 Other surgical procedures as the cause of abnormal reaction of the patient, or of later complication, without mention of misadventure at the time of the procedure | CPT/HCPCS: G0463 ==

== ENCOUNTER 2024-10-02 12:18 | Inpatient (IN) | payer OTHER ==
[~2024-10-02] VITALS: Ht 162.6 cm; Wt 99.6 kg
[~2024-10-02 12:18] MED LIST changes: -DECADRON4 M1; +DECADRON4 M1 PO; -FURO20; +FURO20 PO; +ONDA4 PO; -ONDA4 SL
[2024-10-02 13:38] LABS: BASOPHILS ABSOLUTE AUTO 0.09 K/mm3 (0.00-0.23); BASOPHILS PERCENT AUTO 1 % (0-2); EOSINOPHILS ABSOLUTE AUTO 0.19 K/mm3 (0.00-0.68); EOSINOPHILS PERCENT AUTO 1 % (0-6); Hematocrit 35.8 % (33.0-51.0); IMMATURE GRAN ABSOLUTE AUTO 0.07 K/mm3 (0.00-0.10); IMMATURE GRAN PERCENT AUTO 1 % (0-1); LYMPHOCYTES ABSOLUTE AUTO 3.31 K/mm3 (0.84-5.20); LYMPHOCYTES PERCENT AUTO 22 % (21-46); MONOCYTES ABSOLUTE AUTO 3.39 K/mm3 (0.16-1.47); MONOCYTES PERCENT AUTO 22 % (4-13); Mean Corpuscular HGB 30.6 pg (26.0-34.0); Mean Corpuscular HGB Conc 33.5 g/dL (31.5-36.5); Mean Corpuscular Volume 91 fL (80-100); Mean Platelet Volume 9.8 fL (9.1-12.4); NEUTROPHILS ABSOLUTE AUTO 8.14 K/mm3 (1.96-9.15); NEUTROPHILS PERCENT AUTO 54 % (41-73); Platelet Count 310 K/mm3 (150-400); RDW Coefficient Variation 19.5 % (11.7-14.2); RDW Standard Deviation 65.1 fL (35.1-46.3); Red Blood Cell Count 3.92 M/mm3 (3.80-5.20); White Blood Cell Count 15.19 K/mm3 (4.00-11.30)
[2024-10-02 13:57] LABS: Albumin, Blood 2.7 g/dL (3.4-5.0); Albumin/Globulin Ratio 0.7 (0.8-1.8); Bilirubin, Total 0.5 mg/dL (0.1-1.0); Creatinine, Blood 0.68 mg/dL (0.40-1.00); Globulin, Blood 3.9 g/dL (2.2-4.0); Potassium, Blood 4.4 mmol/L (3.5-5.5); Total Protein, Blood 6.6 g/dL (6.4-8.2)
[2024-10-02 14:20] LABS: Source, Urine Clean Catch
[2024-10-02 14:28] LABS: Appearance, Urine Clear (Clear); Bilirubin, Urine Neg (Neg); Blood, Urine Neg (Neg); Color, Urine Yellow (P-Yellow); Glucose Qualitative, Urine Neg (Neg); Ketones, Urine 1+ (Neg); Leukocyte Esterase, Urine 2+ (Neg); Nitrite, Urine Neg (Neg); Protein, Urine 1+ (Neg); Urobilinogen, Urine NORM (Normal)
[2024-10-02 14:47] LABS: Bacteria Many /hpf; Red Blood Cells, Urine 0-2 /hpf (0-2); Squamous Epithelial Cells Few /hpf (Few)
[2024-10-02] MEDS ORDERED: NS 1,000 ML IV SCH ×3 (15:45→19:20)
[2024-10-02] MEDS ORDERED: CefTRIAXone Sodium 1,000 MG in NS 100 ML IV ONE (15:50)
[2024-10-02] MEDS ORDERED: Water 500ML With 1 PKT Castile Soap Enema PR ONE (15:50)
[2024-10-02] MEDS ORDERED: Lactulose 20 GM/30 ML UDC PO ONE (15:50)
[2024-10-02] MEDS ORDERED: Ondansetron HCl 2 MG / ML 2ML Vial IV PRN (19:15)
[2024-10-02] MEDS ORDERED: Zoledronic Acid 4 MG in NS 100 ML IV ONE (19:30)
[2024-10-02] MEDS ORDERED: Lactobacil 2-S.Thermo-Bifido 1 1 Cap PO SCH (21:00)
[2024-10-02] MEDS ORDERED: LevETIRAcetam 500 MG Tab PO SCH (21:00)
[2024-10-02] MEDS ORDERED: Docusate Sodium/Senna 1 Tab PO SCH (21:00)
[2024-10-02] MEDS ORDERED: Valproic Acid 250 MG Cap PO SCH (21:00)
[2024-10-02 23:09] VITALS: BP 146/80
[2024-10-02 23:22] LABS: Bun/Creatinine Ratio 21.8 (12.0-20.0); Calcium, Blood 13.5 mg/dL (8.5-10.1); Creatinine, Blood 0.69 mg/dL (0.40-1.00); Potassium, Blood 4.1 mmol/L (3.5-5.5)
[2024-10-03] VITALS (7 sets, daily range): BP systolic 130–154; BP diastolic 84–99
[2024-10-03] MEDS ORDERED: FentaNYL Citrate 50 MCG/ML 2 ML Injection IV PRN (02:35)
[2024-10-03 04:01] LABS: BASOPHILS ABSOLUTE AUTO 0.05 K/mm3 (0.00-0.23); BASOPHILS PERCENT AUTO 0 % (0-2); EOSINOPHILS ABSOLUTE AUTO 0.13 K/mm3 (0.00-0.68); EOSINOPHILS PERCENT AUTO 1 % (0-6); Hematocrit 30.9 % (33.0-51.0); Hemoglobin 9.8 g/dL (11.5-16.0); IMMATURE GRAN ABSOLUTE AUTO 0.08 K/mm3 (0.00-0.10); IMMATURE GRAN PERCENT AUTO 1 % (0-1); LYMPHOCYTES ABSOLUTE AUTO 2.39 K/mm3 (0.84-5.20); LYMPHOCYTES PERCENT AUTO 21 % (21-46); MONOCYTES ABSOLUTE AUTO 2.66 K/mm3 (0.16-1.47); MONOCYTES PERCENT AUTO 23 % (4-13); Mean Corpuscular HGB 28.9 pg (26.0-34.0); Mean Corpuscular HGB Conc 31.7 g/dL (31.5-36.5); Mean Corpuscular Volume 91 fL (80-100); Mean Platelet Volume 9.5 fL (9.1-12.4); NEUTROPHILS ABSOLUTE AUTO 6.28 K/mm3 (1.96-9.15); NEUTROPHILS PERCENT AUTO 54 % (41-73); Platelet Count 248 K/mm3 (150-400); RDW Coefficient Variation 19.3 % (11.7-14.2); Red Blood Cell Count 3.39 M/mm3 (3.80-5.20); White Blood Cell Count 11.59 K/mm3 (4.00-11.30)
[2024-10-03 04:29] LABS: Albumin, Blood 2.2 g/dL (3.4-5.0); Albumin/Globulin Ratio 0.6 (0.8-1.8); Bilirubin, Total 0.5 mg/dL (0.1-1.0); Bun/Creatinine Ratio 18.8 (12.0-20.0); Calcium, Blood 12.9 mg/dL (8.5-10.1); Creatinine, Blood 0.69 mg/dL (0.40-1.00); Globulin, Blood 3.5 g/dL (2.2-4.0); Potassium, Blood 4.1 mmol/L (3.5-5.5); Total Protein, Blood 5.7 g/dL (6.4-8.2)
[2024-10-03] MEDS ORDERED: Omeprazole 20 MG CapCR PO SCH (06:00)
--- NOTE | 2024-10-03 06:56 | NUR ---
SHIFT SUMMARY: PT ARRIVES TO PCU 19 FROM ER VIA GURNEY AROUND 2300. PT WAS THEN TRANSFERRED TO HOSPITAL BED. PT ORIENTED TO ROOM AND CALL LIGHT SYSTEM. PT IS A&O TO HERSELF AND PLACE, CONFUSED AND NONSENSICAL WITH ANSWERS. VSS ON 3L NC. PT STATES SHE WEARS 3-4L OXYGEN AT HOME PRN. SR IN THE 80'S. PT HAS A NONHEALING WOUND TO THE RIGHT BREAST. SHE STATES SHE HAS MRSA IN THE BREAST. PLACED PT IN CONTACT PRECAUTIONS. PICTURE IN CHART, LOOKS LIKE THE WOUND IS PACKED. NO DRAINAGE. C/O PAIN 6/10 [address]. PT DOES HAVE FENTANYL PATCHES ON LEFT SHOULDER BLADE. MED REC NOT COMPLETE PT IS NOT ABLE TO ANSWER QUESTIONS APPROPRIATELY. ON A CONSISTENT CARB DIET. DENIES HAVING DIABETES, AND CBG'S HAVE BEEN WNL. PT IS A 2P MAX ASSIST TO BSC. SHE DOES NOT FOLLOW COMMANDS. PT IS CONT/INCONTINENT, BRIEF IN PLACE. D/T PT HAVING SO MUCH PAIN WITH ANY MOVEMENT, THE WICKING SYSTEM WAS PLACED. NO BM THIS SHIFT. ER STATED SHE HAD 2 LARGE BM'S DOWN THERE BEFORE ARRIVING TO THE FLOOR. BED IN LOWEST POSITION, CALL LIGHT WITHIN REACH. BED ALARM SET FOR PT'S SAFETY.
[2024-10-03] MEDS ORDERED: Metoprolol Succinate 50 MG TABCR PO SCH (09:00)
[2024-10-03] MEDS ORDERED: Polyethylene Glycol 3350 17 gm PO SCH (09:00)
[2024-10-03] MEDS ORDERED: Nicotine 21 MG PATCH TOP SCH (09:00)
[2024-10-03] MEDS ORDERED: Enoxaparin 40 MG/0.4 ML SYR SC SCH (09:00)
[2024-10-03] MEDS ORDERED: NS 1,000 ML IV SCH (09:00)
[2024-10-03] MEDS ORDERED: ZYRTEC10 M4 PO (09:40)
[2024-10-03] MEDS ORDERED: Cyclobenzaprine HCl 10 MG Tab PO PRN (11:10)
[2024-10-03] MEDS ORDERED: dexAMETHasone 4 MG TAB PO PRN (11:15)
[2024-10-03] MEDS ORDERED: OxyCODONE HCL 5 MG TAB PO PRN (11:15)
[2024-10-03] MEDS ORDERED: LORazepam 1 MG Tab PO PRN (11:15)
[2024-10-03] MEDS ORDERED: OLANZapine 5 MG Tab PO PRN (12:15)
[2024-10-03] MEDS ORDERED: FentaNYL 50 MCG Patch TOP SCH (13:00)
[2024-10-03] MEDS ORDERED: Dexamethasone 2 MG Tab PO ONE (13:00)
[2024-10-03] MEDS ORDERED: Dexamethasone 2 MG Tab PO PRN (13:00)
--- NOTE | 2024-10-03 15:36 | NUR ---
JOINT VISIT WITH PROVIDER, PRIMARY RN, DYE BOX OPERATOR AND THIS PC RN. PT'S MOTHER, COLE AT BEDSIDE. PINKY IS A/O X3. SHE IS ABLE TO MAKE NEEDS KNOWN. SHE OCCATIONALLY MIXES UP HER WORDS. PAIN IN RUE 01/04, RADIATING, STABBING, PULLING. RIGHT HIP/GROIN 11/04, NOT ABLE TO DESCRIBE. PT'S MOM, COLE REPORTS, "HER PAIN HAS NOT GOTTEN BETTER. PINKY'S DOCTOR TOLD HER TO PUT ON 2 PATCHES (FENTANYL 25 MCG TRANSDERMAL) SINCE 1 PATCH WASN'T WORKING." PT REPORTS SINCE ADDING THE SECOND FENTANYL PATCH FOR A TOTAL OF 50 MCG AND INCREASING FREQUENCY OF OXYCODONE FROM 10 MG Q6 HRS TO 10 MG Q4 HRS HER PAIN HAS BEEN BETTER MANAGED. SINCE THIS ADMISSION, SHE HAS REQUIRED IV FENTANYL FOR BREAKTHROUGH PAIN. HER FENTANYL PATCH WAS D/T BE CHANGED ON Wednesday10/01/24. PT REPORTS ETOH CESSATION ON 09/26/24 AFTER HER APPT WITH DR. QUINTERO (ONCOLOGY). SMOKING APX 1/2 PK PER DAY. PROVIDED A BLANK ADVANCE DIRECTIVE BOOKLET TO PT/MOM. PT REPORTS ANXIETY OVER FILLING OUT AN ADVANCE DIRECTIVE. "I'M NOT READY TO ". VALIDATION OF PT'S FEELINGS PROVIDED. GENTLE EDUCATION RE: IMPORTANCE OF MAKING WANTS AND NEEDS KNOWN FOR BOTH SHORT TERM AND SENIOR LIVING. PINKY ELECTS FOR HER MOTHER, COLE RAMIREZ HER PRIMARY DECISION MAKER. COLE'S PHONE NUMBER IS [phone]. PT'S SPOUSE TO BE SECONDARY DECISION MAKER. SPOUSE'S NAME IS YOUNG, GOES BY "MACO". PROVIDER REPORTS HE WILL BE PLACING UPDATED RX ORDERS FOR IMPROVED PAIN MANAGEMENT. PC TO REVISIT PT TOMORROW 10/04/24. PINKY ELECTS FOR HER MOTHER, COLE RAMIREZ HER PRIMARY DECISION MAKER. COLE'S PHONE NUMBER IS [phone].
[2024-10-03] MEDS ORDERED: CefTRIAXone Sodium 1,000 MG in NS 100 ML IV SCH (18:00)
--- NOTE | 2024-10-03 18:13 | NUR ---
End of Shift Upon care assumption, pt A&O to self, family at bedside, month & year. Pt originally reporting location [place] or [place]. Pt disbelieving of being in [place] at [facility]. As shift went on, pt became more oriented, now A&O x4. Pt forgetful of some details at times. Pt VSS. Spo2 > 92% on 2-3L NC which pt reports being home baseline. Pt reports wearing NC as needed, but reports wearing oxygen more often than not. Telemetry showing NSR. Pt weak, requiring 1-2 assist to stand, then able to ambulate w/ FWW & 1 person SBA. Pt reporting pain in R shoulder & back. Fentanyl patch in place & pain medication provided per emar/pt request w/ pt report of improvement. R breast wound packing removed, cleansed & repacked & redressed this shift. Pt w/ medium brown/yellow BM this shift.
[2024-10-03] MEDS ORDERED: Dexamethasone 2 MG Tab PO SCH (19:00)
[2024-10-03] MEDS ORDERED: Insulin Human Lispro 100 Units/ML 3ML Syringe SC SCH ×2 (21:00)
[2024-10-03] MEDS ORDERED: Rosuvastatin Calcium 10 MG Tab PO SCH (21:00)
[2024-10-03] MEDS ORDERED: Zolpidem Tartrate 10 MG Tab PO SCH (21:00)
[2024-10-03] MEDS ORDERED: Docusate Sodium 100 MG Cap PO SCH (21:00)
[2024-10-03] MEDS ORDERED: OLANZapine 10 MG Tab PO SCH (21:00)
[2024-10-03] MEDS ORDERED: Calcitonin Salmon 200 IU/ML 2ML Vial IM SCH (23:08)
[2024-10-04 04:04] VITALS: BP 108/78
[2024-10-04 04:46] LABS: BASOPHILS ABSOLUTE AUTO 0.04 K/mm3 (0.00-0.23); BASOPHILS PERCENT AUTO 0 % (0-2); EOSINOPHILS ABSOLUTE AUTO 0.02 K/mm3 (0.00-0.68); EOSINOPHILS PERCENT AUTO 0 % (0-6); Hematocrit 31.9 % (33.0-51.0); IMMATURE GRAN ABSOLUTE AUTO 0.07 K/mm3 (0.00-0.10); IMMATURE GRAN PERCENT AUTO 1 % (0-1); LYMPHOCYTES ABSOLUTE AUTO 1.54 K/mm3 (0.84-5.20); LYMPHOCYTES PERCENT AUTO 17 % (21-46); MONOCYTES ABSOLUTE AUTO 2.16 K/mm3 (0.16-1.47); MONOCYTES PERCENT AUTO 24 % (4-13); Mean Corpuscular HGB 29.1 pg (26.0-34.0); Mean Corpuscular HGB Conc 31.3 g/dL (31.5-36.5); Mean Corpuscular Volume 93 fL (80-100); Mean Platelet Volume 9.3 fL (9.1-12.4); NEUTROPHILS ABSOLUTE AUTO 5.07 K/mm3 (1.96-9.15); NEUTROPHILS PERCENT AUTO 57 % (41-73); Platelet Count 212 K/mm3 (150-400); RDW Coefficient Variation 19.1 % (11.7-14.2); RDW Standard Deviation 65.1 fL (35.1-46.3); Red Blood Cell Count 3.44 M/mm3 (3.80-5.20)
[2024-10-04 05:23] LABS: Albumin/Globulin Ratio 0.6 (0.8-1.8); Bilirubin, Total 0.4 mg/dL (0.1-1.0); Bun/Creatinine Ratio 20.7 (12.0-20.0); Calcium, Blood 10.2 mg/dL (8.5-10.1); Creatinine, Blood 0.58 mg/dL (0.40-1.00); Globulin, Blood 3.5 g/dL (2.2-4.0); Potassium, Blood 3.7 mmol/L (3.5-5.5); Total Protein, Blood 5.5 g/dL (6.4-8.2)
--- NOTE | 2024-10-04 06:02 | NUR ---
SHIFT SUMMARY PT IS A&O X4, PT OCCATIONALLY HAVING DIFFICULTY FINDING HER WORDS AND REFERRING TO OBJECTS BY THE WRONG NAME BUT CORRECTS HER SELF, ABLE TO MAKE NEEDS KNOWN, OBEYS COMMANDS, MOVING ALL EXTREMITIES WITH PURPOSE/ RIGHT ARM HAS PAIN WITH MOVEMENT/ RIGHT HIP HAS PAIN WITH MOVEMENT, PT AMBULATED 1 PERSON ASSIST WITH FWW, PT REPOISTONING SELF IN BED, USING CALL LIGHT APPROPRIATELY. CONINOUS SPO2, SPO2 GREATER THAN 90% ON 2L O2 VIA NC, PT DENIES SOB WHILE AT REST, LUNG BASES SOUND CRACKLY. CONTINUOUS TELE MONITORING, SINUS RHYTHM 80 S, PT DENIES CHEST P/P, PULSES PRESENT T/O, BP STABLE WITH MAP GREATER THAN 65. PT HAS EDEMA TO THE RIGHT ARM. BOWEL TONES PRESENT IN ALL 4Q, PT DENIES FEELINGS OF NAUSEA OR FEELINGS OF CONSTIPATION. PT VOIDING IND, URINE YELLOW IN COLOR. PT REPORTING PAIN AT THE START OF THIS SHIFT IN HER RIGHT SHOULDER AND HIP/MEDICATED PER ORDERS/ PT ABLE TO REST WITH EYES CLOSED AND RR EVEN THROUGHOUT THE MAJORITY OF THE NIGHT. DRESSING TO RIGHT BREAST C/D/I BED LOWEST POSITION, CALL LIGHT IN REACH, AWAITING TO GIVE REPORT TO ONCOMING RN.
[2024-10-04 08:17] VITALS: BP 139/84
[2024-10-04] MEDS ORDERED: Potassium Chloride 10 Meq Tablet SA PO SCH (09:00)
[2024-10-04] MEDS ORDERED: Loratadine 10 MG Tab PO SCH (09:00)
[2024-10-04 11:42] VITALS: BP 121/76
--- NOTE | 2024-10-04 15:19 | NUR ---
SUPPORTIVE VISIT PER PT AND FAMILY REQUEST EDUCATION RE: ADVANCE DIRECTIVE AND WHAT EACH QUESTION IS ASKING. PT SHOWING VISABLE SIGNS OF BEING OVERWHELMED WITH EMOTION AND ANTICIPATED DEMISE. PT AND FAMILY TO FURTHER DISCUSS ADVANCE DIRECTIVE AT A LATER TIME. DURING AD DISCUSSION, PINKY EXPRESSED SHE WANTS HER MOTHER COLE RAMIREZ TO BE HER PRIMARY DECISION MAKER. HER SISTER ALTERNATE DECISION MAKER. DAUGHTER, GREGORY VILLALOBOS AND SECOND ALTERNATE DESISION MAKER. PINKY EXPRESSED NOT WANTING CPR OR INTUBATION. POLST FORM FILLED OUT TO REFLECT DNR/SELECTIVE MEDICAL INTERVENTIONS. VERBAL ORDER OBTAINED FROM PROVIDER FOR DNR. ORDER PLACED ACCORDINGLY. PROVIDER TO SIGN POLST. PT'S ADVANCING CANCER DX IS LIKELY CONTRIBUTING TO INCREASED PAIN AND DECREASE IN MOBILITY. PT WOULD BENEFIT FROM HOME HEALTH PT/OT/BATH AIDE AND RN FOR WOUND CARE. SHE IS CURRENTLY SET UP WITH THE WOUND CLINIC. GETTING TO APPOINTMENTS IS PHYSICALLY TAXING FOR PT. CARE MANAGEMENT IS REVIEWING POSSIBLE HOME HEALTH BENEFITS. PRIMARY RN, ORIENTING RN, THIS PC RN, PT, PT'S MOTHER AND PT'S DTR PRESENT.
[2024-10-04 16:55] VITALS: BP 125/77
--- NOTE | 2024-10-04 18:39 | NUR ---
End of Shift Pt A&O x4 though forgetful at times & occassionally misuses words. Pt VSS. Spo2 > 92% on 2L NC. Monitor showing NSR. Pt w/ continued pain in R shoulder, back & R hip. Pain being managed per emar w/ pt report of improvevment though pain remains constant. Pt requiring 1 person assist for getting up & ambulating. Pt using FWW. Pt family at bedside majority of shift. Palliative care nurse spending quality time in pt rm this shift for discussion of care/goals. Pt & pt family appreciative of visit. Pt opting to change code status from full code to DNR while still pursuing treatment at this time.
[2024-10-04 19:48] VITALS: BP 120/79
--- NOTE | 2024-10-04 22:35 | NUR ---
MD NOTIFED MD MADE AWARE OF PT HR SUSTAING 120-150'S DEPITE LOPRESSOR PUSHED/ PT ASYMPTOMATIC MD TO BEDSIDE @ [facility] [id number] NEW ORDERS PLACED/LABS OBTAINED/EKG OBTAINED-NOTIFIED MD OF RESULTS
[2024-10-04 23:50] VITALS: BP 129/78
[2024-10-05 03:50] VITALS: BP 118/71
[2024-10-05 06:15] LABS: BASOPHILS ABSOLUTE AUTO 0.07 K/mm3 (0.00-0.23); BASOPHILS PERCENT AUTO 1 % (0-2); EOSINOPHILS ABSOLUTE AUTO 0.18 K/mm3 (0.00-0.68); EOSINOPHILS PERCENT AUTO 1 % (0-6); Hemoglobin 10.1 g/dL (11.5-16.0); IMMATURE GRAN ABSOLUTE AUTO 0.08 K/mm3 (0.00-0.10); IMMATURE GRAN PERCENT AUTO 1 % (0-1); LYMPHOCYTES PERCENT AUTO 14 % (21-46); MONOCYTES PERCENT AUTO 18 % (4-13); Mean Corpuscular HGB 29.2 pg (26.0-34.0); Mean Corpuscular HGB Conc 31.6 g/dL (31.5-36.5); Mean Corpuscular Volume 93 fL (80-100); Mean Platelet Volume 9.7 fL (9.1-12.4); NEUTROPHILS ABSOLUTE AUTO 10.05 K/mm3 (1.96-9.15); NEUTROPHILS PERCENT AUTO 66 % (41-73); Platelet Count 240 K/mm3 (150-400); RDW Coefficient Variation 19.7 % (11.7-14.2); RDW Standard Deviation 66.2 fL (35.1-46.3); Red Blood Cell Count 3.46 M/mm3 (3.80-5.20); White Blood Cell Count 15.18 K/mm3 (4.00-11.30)
[2024-10-05 06:22] LABS: Albumin, Blood 2.2 g/dL (3.4-5.0); Anion Gap 11 mmol/L (3-11); Blood Urea Nitrogen 9 mg/dL (8-24); CO2, Blood 27 mmol/L (21-32); Calcium, Blood 8.7 mg/dL (8.5-10.1); Chloride, Blood 103 mmol/L (98-108); Glomerular Filtration Rate 118 (60-); Glucose, Blood 89 mg/dL (70-99); Phosphorus, Blood 1.8 mg/dL (2.5-4.9); Potassium, Blood 3.5 mmol/L (3.5-5.5); Sodium, Blood 137 mmol/L (136-145)
--- NOTE | 2024-10-05 06:36 | NUR ---
SHIFT SUMMARY PT IS A&O X4, PT OCCATIONALLY HAVING DIFFICULTY FINDING HER WORDS AND REFERRING TO OBJECTS BY THE WRONG NAME BUT IS ABLE TO CORRECT HER SELF, ABLE TO MAKE NEEDS KNOWN, OBEYS COMMANDS, MOVING ALL EXTREMITIES WITH PURPOSE/ RIGHT ARM HAS PAIN WITH MOVEMENT/ RIGHT HIP HAS PAIN WITH MOVEMENT, PT AMBULATED 1 PERSON ASSIST WITH FWW AND GAIT BELT, PT REPOISTONING SELF IN BED, USING CALL LIGHT APPROPRIATELY. CONINOUS SPO2, SPO2 GREATER THAN 90% ON 2L O2 VIA NC, PT DENIES SOB WHILE AT REST, LUNG BASES SOUND IMPROVED WITH FINE CRACKELS. CONTINUOUS TELE MONITORING, SINUS RHYTHM 70-80 S, PT DENIES CHEST P/P, PULSES PRESENT T/O, BP STABLE WITH MAP GREATER THAN 65. PT HAS EDEMA TO THE RIGHT ARM. BOWEL TONES PRESENT IN ALL 4Q, PT DENIES FEELINGS OF NAUSEA OR FEELINGS OF CONSTIPATION. PT VOIDING IND, URINE YELLOW IN COLOR. PT REPORTING PAIN T/O THIS SHIFT IN HER RIGHT SHOULDER AND HIP/MEDICATED PER ORDERS. DRESSING TO RIGHT BREAST C/D/I BED LOWEST POSITION, CALL LIGHT IN REACH, AWAITING TO GIVE REPORT TO ONCOMING RN.
[2024-10-05 07:52] VITALS: BP 134/76
[2024-10-05] MEDS ORDERED: Potassium Phosphate Dibasic 30 MM in Dextrose 5% 500 ML IV STA (09:22)
[2024-10-05 12:14] VITALS: BP 124/78
--- NOTE | 2024-10-05 15:40 | NUR ---
Spiritual care visit conducted. After several attempts to visit the patient I finally found a quiet moment while the patient was alert. The patient immediately told me about the eight surgeries she has had in recent yrs, the progression of her cancer and the plan of care moving forward. She tells me about her personal struggles and is tearful as she does so. She talks about the family unit complications, what a meaningful looks like and we explore ways to manage the chaos that surrounds her as she is in the [place] of her life. I normalize her fears and feelings, reinforce helpful attitudes and practices and provided therapeutic listening. The patient responded well and showed signs of an increase in peace. She voices appreciation for the visit. I will cotalannue to remian available.
--- NOTE | 2024-10-05 15:53 | NUR ---
PROVIDER SIGNED POLST. MET WITH PATIENT AND MOTHER COLE. PROVIDED COPIES OF POLST FORM. FAXED TO OR POLST REGISTRY, [facility], AND MEDICAL RECORDS. ORIG. PLACED IN CHART ALONG WITH COPY
[2024-10-05 16:10] VITALS: BP 127/75
--- NOTE | 2024-10-05 18:37 | NUR ---
PT A&O4 ON 2LNC. PT CONTINUES W/PAIN TO R HIP AND LOWER BACK THAT IS BEING TREATED PER EMAR. X-RAY DONE OF THAT AREA. SHE IS A X1 ASSIST TO THE RESTROOM W/FWW. WOUND CARE DONE TO R BREAST TODAY, NEEDS TO BE DONE AGAIN ON 10/07/24.
[2024-10-05 20:35] VITALS: BP 128/99
[2024-10-05] MEDS ORDERED: Diclofenac Sodium 100 GM TUBE TOP PRN (21:55)
[2024-10-05 23:59] VITALS: BP 146/88
[2024-10-06 03:44] VITALS: BP 123/76
[2024-10-06 04:15] LABS: BASOPHILS ABSOLUTE AUTO 0.04 K/mm3 (0.00-0.23); BASOPHILS PERCENT AUTO 0 % (0-2); EOSINOPHILS PERCENT AUTO 2 % (0-6); Hematocrit 31.7 % (33.0-51.0); Hemoglobin 10.4 g/dL (11.5-16.0); IMMATURE GRAN ABSOLUTE AUTO 0.11 K/mm3 (0.00-0.10); IMMATURE GRAN PERCENT AUTO 1 % (0-1); LYMPHOCYTES ABSOLUTE AUTO 2.51 K/mm3 (0.84-5.20); LYMPHOCYTES PERCENT AUTO 20 % (21-46); MONOCYTES PERCENT AUTO 21 % (4-13); Mean Corpuscular HGB 29.5 pg (26.0-34.0); Mean Corpuscular HGB Conc 32.8 g/dL (31.5-36.5); Mean Corpuscular Volume 90 fL (80-100); Mean Platelet Volume 8.9 fL (9.1-12.4); NEUTROPHILS ABSOLUTE AUTO 7.03 K/mm3 (1.96-9.15); NEUTROPHILS PERCENT AUTO 56 % (41-73); Platelet Count 219 K/mm3 (150-400); RDW Coefficient Variation 19.8 % (11.7-14.2); RDW Standard Deviation 65.9 fL (35.1-46.3); Red Blood Cell Count 3.52 M/mm3 (3.80-5.20); White Blood Cell Count 12.59 K/mm3 (4.00-11.30)
[2024-10-06 04:40] LABS: Albumin, Blood 2.2 g/dL (3.4-5.0); Anion Gap 11 mmol/L (3-11); Blood Urea Nitrogen 9 mg/dL (8-24); Bun/Creatinine Ratio 19.3 (12.0-20.0); CO2, Blood 24 mmol/L (21-32); Calcium, Blood 8.1 mg/dL (8.5-10.1); Chloride, Blood 104 mmol/L (98-108); Creatinine, Blood 0.47 mg/dL (0.40-1.00); Glomerular Filtration Rate 120 (60-); Glucose, Blood 86 mg/dL (70-99); Phosphorus, Blood 2.5 mg/dL (2.5-4.9); Potassium, Blood 3.7 mmol/L (3.5-5.5); Sodium, Blood 135 mmol/L (136-145)
--- NOTE | 2024-10-06 06:09 | NUR ---
SHIFT SUMMARY PT IS A&O X4, PT OCCATIONALLY HAVING DIFFICULTY FINDING HER WORDS AND REFERRING TO OBJECTS BY THE WRONG NAME BUT IS ABLE TO CORRECT HER SELF, ABLE TO MAKE NEEDS KNOWN, OBEYS COMMANDS, MOVING ALL EXTREMITIES WITH PURPOSE/ RIGHT ARM HAS PAIN WITH MOVEMENT/ RIGHT HIP HAS PAIN WITH MOVEMENT, PT NEEDING 2 PERSON ASSIST TO GET OUT OF BED/AMBULATED 1 PERSON ASSIST WITH FWW AND GAIT BELT, USING CALL LIGHT APPROPRIATELY. CONTINUOUS SPO2, SPO2 GREATER THAN 90% ON 2L O2 VIA OXIMASK, PT DENIES SOB WHILE AT REST, LUNG SOUND DIM T/O. CONTINUOUS TELE MONITORING, SINUS RHYTHM 70-80 S, PT DENIES CHEST P/P, PULSES PRESENT T/O, BP STABLE WITH MAP GREATER THAN 65. PT HAS EDEMA TO THE RIGHT ARM. BOWEL TONES PRESENT IN ALL 4Q, PT REPORTING MILD FEELINGS OF NAUSEA DENIED NEED FOR MEDICAL INTERVENTION. PT VOIDING IND, URINE YELLOW IN COLOR BUT PROGRESSIVELY HAS GOTTEN DARKER OVER THE NIGHT BUT NOT QUITE GIL. PT REPORTING PAIN T/O THIS SHIFT IN HER RIGHT SHOULDER AND HIP/MEDICATED PER ORDERS. DRESSING TO RIGHT BREAST C/D/I BED LOWEST POSITION, CALL LIGHT IN REACH, AWAITING TO GIVE REPORT TO ONCOMING RN.
[2024-10-06 06:58] VITALS: BP 120/74
--- NOTE | 2024-10-06 07:06 | NUR ---
Received report from Noc RN. Patient resting and awakens easily for assessment and VS. She is able to answer questions appropriately and denies any immediate concern. She has 18ga IV to LLFA and is SL, dressing intact. She is on 2L humidified O2 via oxy mask. She states wound dressing and packing done 10/05 and is done every other day, dressing C/D/I to R Breast. will evaluate wound instructions.
[2024-10-06] MEDS ORDERED: dexAMETHasone 4 MG TAB PO SCH (09:00)
--- NOTE | 2024-10-06 09:00 | NUR ---
Patient up to bathroom with two staff and walker, tolerated well. She tolerated am meds well. Afetr getting back from bathrrom she requested pain meds. Will medicate per AUG. She has been resting since am assessment. She is on RA and sats >90% Repositioned pillow for comfort after getting back in bed.
[2024-10-06] MEDS ORDERED: OxyCODONE HCL 10 MG TABCR PO ONE (10:40)
--- NOTE | 2024-10-06 11:00 | NUR ---
Dr Long in room with family assessing patient. He has added Oxycontin to regimine. Have been using 50 mcg fentanyl for break through pain. Spoke with family to start discussing home needs with Dr Long to be prepared to go home and manage ADL's and pain control. patient has been on RA while awake and tolerates well and sats >90%. She took awhile to eat breakfast but finally finished. Still painful lower back and hip. Awaiting phgarmacy to appprove order and will do now dose of Oxycontin.
[2024-10-06 11:05] VITALS: BP 116/66
--- NOTE | 2024-10-06 13:20 | NUR ---
Patient up to bathroom with two assist and was painful post transfer at hip and lower back, Medicated with oxycodone and started new dose of Fentanyl patch atr 75 mcg on right shoulder. She is tolerating lunch slowly. Family remains at bedside. She remains on RA and tolerates well with Sats >90%. Dr Long stopped by and checked on her.
--- NOTE | 2024-10-06 14:45 | NUR ---
Patient has family at bedside, she states feeling better. medicated for breakthrough pain with Fentanyl per MAR. Remains on RA and is in good spirits joking with family. MAEW but very slowly. Tolerates intake well, Denies any current needs.
[2024-10-06 16:48] VITALS: BP 125/75
--- NOTE | 2024-10-06 18:00 | NUR ---
Gave report to medical floor nurse for transfer to [facility] on tele. Medicated per MAR for pain prior to transfer. Her family gathered all her belongings and placed in bag on bed with transfer.
[2024-10-06 18:05] VITALS: BP 122/73
[2024-10-06 20:11] VITALS: BP 124/79
[2024-10-06] MEDS ORDERED: OxyCODONE HCL 10 MG TABCR PO SCH (21:00)
[2024-10-07 00:26] VITALS: BP 124/83
[2024-10-07 04:55] VITALS: BP 126/74
--- NOTE | 2024-10-07 05:14 | NUR ---
PT A&O X4, BUT VERY FORGETFULL, VERY PARANOID AND HAS A SPECIFIC REQUIREMENT FOR SOME CARES LIKE HOW SHE GETS OOB. PAIN IS MODERATE AND MOSTLY IN THE RIGHT HIP. VS WNL, REMAINS ON RA WITH EXCEPTION OF AT NIGHT WHEN SLEEPING THEN REQUESTS O2/ VENTI MASK. UP TO BR TO VOID X4 THIS SHIFT. PT MEDICATED WITH FENTENYL, ROXICODONE, AND FLEXIRIL FOR PAIN, AND CONTINUES TO HAVE A FENTENYL PATCH ON (CHANGED ON 10/06). PT TELE NSR. HAS A PORT WHICH IS NOT ACCESSED. WOUND TO RIGHT BREAST IS PACKED AND SCEDULED TO HAVE CHANGED ON 10/07, NO DRAINAGE NOTED. PT ENCOURAGED TO DO MUCH POSSIBLE FOR HERSELF IN R/T MOBILITY, AND ADL'S.
[2024-10-07 06:05] LABS: BASOPHILS ABSOLUTE AUTO 0.05 K/mm3 (0.00-0.23); BASOPHILS PERCENT AUTO 0 % (0-2); EOSINOPHILS PERCENT AUTO 2 % (0-6); Hematocrit 32.1 % (33.0-51.0); Hemoglobin 10.4 g/dL (11.5-16.0); IMMATURE GRAN ABSOLUTE AUTO 0.11 K/mm3 (0.00-0.10); IMMATURE GRAN PERCENT AUTO 1 % (0-1); LYMPHOCYTES ABSOLUTE AUTO 2.49 K/mm3 (0.84-5.20); LYMPHOCYTES PERCENT AUTO 21 % (21-46); MONOCYTES ABSOLUTE AUTO 2.88 K/mm3 (0.16-1.47); MONOCYTES PERCENT AUTO 25 % (4-13); Mean Corpuscular HGB 29.3 pg (26.0-34.0); Mean Corpuscular HGB Conc 32.4 g/dL (31.5-36.5); Mean Corpuscular Volume 90 fL (80-100); Mean Platelet Volume 9.5 fL (9.1-12.4); NEUTROPHILS ABSOLUTE AUTO 6.01 K/mm3 (1.96-9.15); NEUTROPHILS PERCENT AUTO 51 % (41-73); Platelet Count 213 K/mm3 (150-400); RDW Coefficient Variation 19.7 % (11.7-14.2); RDW Standard Deviation 65.8 fL (35.1-46.3); Red Blood Cell Count 3.55 M/mm3 (3.80-5.20); White Blood Cell Count 11.74 K/mm3 (4.00-11.30)
[2024-10-07 06:26] LABS: Albumin, Blood 2.1 g/dL (3.4-5.0); Albumin/Globulin Ratio 0.6 (0.8-1.8); Bilirubin, Total 0.6 mg/dL (0.1-1.0); Bun/Creatinine Ratio 18.7 (12.0-20.0); Calcium, Blood 7.6 mg/dL (8.5-10.1); Creatinine, Blood 0.48 mg/dL (0.40-1.00); Globulin, Blood 3.8 g/dL (2.2-4.0); Potassium, Blood 3.6 mmol/L (3.5-5.5); Total Protein, Blood 5.9 g/dL (6.4-8.2)
[2024-10-07 07:42] VITALS: BP 140/83
[2024-10-07] MEDS ORDERED: FentaNYL Citrate 50 MCG/ML 2 ML Injection IV PRN (08:10)
[2024-10-07] MEDS ORDERED: OxyCODONE HCL 15 MG TAB.SR.12H PO SCH (09:00)
--- NOTE | 2024-10-07 17:29 | NUR ---
ADVANCE DIRECTIVE AND SUPPORTIVE VISIT ASSISTED PT AND FAMILY WITH FILLING OUT A NEW ADVANCE DIRECTIVE. PT IS A/O X4. ABLE TO MAKE HER NEEDS KNOWN. HER MENTATION HAS GREATLY IMPROVED SINCE THIS PC RN SEEN HER LAST WEDNESDAY 10/04. SHE IS USING APPROPRIATE WORDS FOR CONVERSATION AND ASKED CLARIFYING QUESTIONS DURING ADVANCE DIRECTIVE REVIEW. FORM FILLED OUT TO REFLECT PT'S WISHES (DNR/DNI, NO FEEDING TUBE). PT TO SIGN FORM IN FRONT OF A NOTARY ON MONDAY 10/09.
--- NOTE | 2024-10-07 18:12 | NUR ---
ASSUMED CARE OF PT. A/O X 3-4 BUT IS A LITTLE FORGETFUL CALLS APPROPRIATLY AND MAKES NEEDS KNOWN, ASSISTED TO BATHROOM SEVERAL TIMES DURING SHIFT USING FWW, PT WAS SLOW AND STEADY AND SINCERE WELL WITH MINIMAL PAIN WHILE AMB. PT HAS STATED THAT SHE FEELS MUCH BETTER TODAY AND IS ABLE TO MOVE BETTER IF WE KEEP UP ON HER MEDICATIONS. FAMILY ARRIVED TODAY AND WORKED WITH PALLATIVE CARE TO BETTER ASSIST PT AND REDIRECT CARE FOR COMFORT AND MOBILITY.
[2024-10-07 19:37] VITALS: BP 122/86
[2024-10-07] MEDS ORDERED: Sennosides 8.6 MG Tab PO SCH (21:00)
[2024-10-07] MEDS ORDERED: Polyethylene Glycol 3350 17 gm PO SCH (21:00)
[2024-10-08 00:24] VITALS: BP 126/82
--- NOTE | 2024-10-08 04:32 | NUR ---
PT A&O X4, DOES APPEAR TO BE LESS FORGETFULL THIS SHIFT. VS WNL, TELE IS NSR WITH BBB, O2 SATS >90%, WEARS O2 AT NIGHT FOR COMMFORT. UP TO BR WITH ASSIST AND FWW, ALSO APPEARS TO BE STRONGER AND NEEDS LESS ASSIST WITH TRANSFERS, STILL NEEDS ASSIST WITH MOVING IN BED. PT CONTINUES TO HAVE SIGNIFICANT PAIN, AND INCREASED MUSCLE SPASMS IN LOW BACK THIS SHIFT, MEDICATED WITH OXYCODONE X3, FLEXIRIL X1, AND FENTENYL X1. WILL CONIINUE TO MONITOR PAIN.
[2024-10-08 05:30] VITALS: BP 131/88
[2024-10-08 06:05] LABS: BASOPHILS ABSOLUTE AUTO 0.05 K/mm3 (0.00-0.23); BASOPHILS PERCENT AUTO 1 % (0-2); EOSINOPHILS ABSOLUTE AUTO 0.19 K/mm3 (0.00-0.68); EOSINOPHILS PERCENT AUTO 2 % (0-6); Hematocrit 32.1 % (33.0-51.0); Hemoglobin 10.4 g/dL (11.5-16.0); IMMATURE GRAN ABSOLUTE AUTO 0.15 K/mm3 (0.00-0.10); IMMATURE GRAN PERCENT AUTO 1 % (0-1); LYMPHOCYTES ABSOLUTE AUTO 2.35 K/mm3 (0.84-5.20); LYMPHOCYTES PERCENT AUTO 21 % (21-46); MONOCYTES ABSOLUTE AUTO 2.95 K/mm3 (0.16-1.47); MONOCYTES PERCENT AUTO 27 % (4-13); Mean Corpuscular HGB 29.1 pg (26.0-34.0); Mean Corpuscular HGB Conc 32.4 g/dL (31.5-36.5); Mean Corpuscular Volume 90 fL (80-100); Mean Platelet Volume 9.7 fL (9.1-12.4); NEUTROPHILS ABSOLUTE AUTO 5.42 K/mm3 (1.96-9.15); NEUTROPHILS PERCENT AUTO 49 % (41-73); Platelet Count 219 K/mm3 (150-400); RDW Coefficient Variation 19.5 % (11.7-14.2); Red Blood Cell Count 3.57 M/mm3 (3.80-5.20); White Blood Cell Count 11.11 K/mm3 (4.00-11.30)
[2024-10-08 06:26] LABS: Albumin, Blood 2.1 g/dL (3.4-5.0); Albumin/Globulin Ratio 0.6 (0.8-1.8); Bilirubin, Total 0.7 mg/dL (0.1-1.0); Bun/Creatinine Ratio 16.2 (12.0-20.0); Creatinine, Blood 0.49 mg/dL (0.40-1.00); Globulin, Blood 3.7 g/dL (2.2-4.0); Potassium, Blood 3.5 mmol/L (3.5-5.5); Total Protein, Blood 5.8 g/dL (6.4-8.2)
[2024-10-08 08:22] VITALS: BP 128/78
--- NOTE | 2024-10-08 08:44 | NUR ---
NO BM IN LAST 3 DAYS. PT BATTLED CONSTIPATION PRIOR TO ADMISSION USING STOOL SOFTNERS, LAXATIVES AND SUPPOSITORIES W/O SUCCESS. AFTER RECEIVING SOAP SUDS ENEMA AND LACTULOSE IN THE ED SHE WAS ABLE TO HAVE A BM. PAIN POORLY CONTROLLED OVERNIGHT 10/07. NOC RN'S CHARTING AND MAR INDICATED PT NEEDED PRN RX'S T/O NIGHT FOR BREAKTHROUGH PAIN. REVIEWED MAR WITH PROVIDER. PROVIDER MADE ADJUSTMENTS TO ANALGESICS AND BOWEL CARE.
[2024-10-08] MEDS ORDERED: Bisacodyl 10 MG Supp PR ONE (08:45)
[2024-10-08] MEDS ORDERED: OxyCODONE HCL 20 MG TABCR PO SCH (09:00)
[2024-10-08] MEDS ORDERED: Dexamethasone 2 MG Tab PO SCH (09:00)
[2024-10-08 15:11] VITALS: BP 122/63
--- NOTE | 2024-10-08 16:31 | NUR ---
ASSUMED CARE OF PT. A/O X 4 BUT VERY DROWSEY, PT IS DOING BETTER TODAY WITH PAIN, HASNT ASKED NOR NEEDED ANY MEDICATION SINCE BEING MEDICATED THIS AM. DROWSEINESS POSSIBLE ASSOCCIATED WITH THE INCREASE AND CHANGE OF SOME PAIN MEDICATIONS. SUPPOSITORY GIVEN THIS AM AND PT HAS HAD SEVERAL SMALL BMS. FAMILY HAS BEEN AT BEDSIDE, PT IN GOOD SPIRITS AND IS ABLE TO MAKE NEEDS KNOWN
[2024-10-08 20:25] VITALS: BP 130/66
[2024-10-09 01:38] VITALS: BP 115/70
--- NOTE | 2024-10-09 05:11 | NUR ---
PT A&O X4, FORGETFULL AT TIMES, VS WNL, UP TO BR TO VOID WITH LESS ASSIST FROM STAFF. PT MOVING WELL WITH LESS ASSIST NEEDED TO GET IN AND OUT OF BED. PT WITH LESS REQUESTS FOR PRN PAIN MEDS THIS NIGHT. SLEPT WELL, CONTINUES TO UTILIZE O2 AT NIGHT FOR COMFORT, O2 SATS >90%. TELE NSR WITH BBB. FENTENYL PATCH IN PLACE, USES CALL SYSTEM APPRPRIATELY, DECLINES SCD'S
[2024-10-09 06:16] VITALS: BP 126/66
[2024-10-09 07:42] VITALS: BP 120/75
--- NOTE | 2024-10-09 15:54 | NUR ---
ASSUMED CARE OF PT. UNEVENTFUL DAY TODAY, PT LOOKING FORWARD TO GOING HOME TOMORROW. PT DID VERY WELL THIS AM WITH GETTING OUT OF BED, PT WAS ABLE TO GET SELF OUT OF BED AND USING FWW WAS ABLE TO GET TO BATHROOM WITH MINIMAL ASSIST. PAIN CONTROL IS WELL, AND PT LESS DROWSEY TODAY, THEN PREVIOUS DAY. CALL LIGHT WITHIN REACH ABLE TO MAKE NEEDS KNOWN.
[2024-10-09 16:00] VITALS: BP 109/64
[2024-10-09 20:18] VITALS: BP 118/80
[2024-10-09 23:06] VITALS: BP 142/86
[2024-10-10 03:08] VITALS: BP 109/59
[2024-10-10 07:56] VITALS: BP 106/64
[2024-10-10 08:19] LABS: BASOPHILS ABSOLUTE AUTO 0.05 K/mm3 (0.00-0.23); BASOPHILS PERCENT AUTO 1 % (0-2); EOSINOPHILS ABSOLUTE AUTO 0.14 K/mm3 (0.00-0.68); EOSINOPHILS PERCENT AUTO 1 % (0-6); Hematocrit 29.8 % (33.0-51.0); Hemoglobin 9.7 g/dL (11.5-16.0); IMMATURE GRAN ABSOLUTE AUTO 0.23 K/mm3 (0.00-0.10); IMMATURE GRAN PERCENT AUTO 2 % (0-1); LYMPHOCYTES ABSOLUTE AUTO 2.17 K/mm3 (0.84-5.20); LYMPHOCYTES PERCENT AUTO 20 % (21-46); MONOCYTES ABSOLUTE AUTO 2.79 K/mm3 (0.16-1.47); MONOCYTES PERCENT AUTO 26 % (4-13); Mean Corpuscular HGB 28.9 pg (26.0-34.0); Mean Corpuscular HGB Conc 32.6 g/dL (31.5-36.5); Mean Corpuscular Volume 89 fL (80-100); Mean Platelet Volume 9.5 fL (9.1-12.4); NEUTROPHILS ABSOLUTE AUTO 5.57 K/mm3 (1.96-9.15); NEUTROPHILS PERCENT AUTO 51 % (41-73); Platelet Count 222 K/mm3 (150-400); RDW Coefficient Variation 19.5 % (11.7-14.2); Red Blood Cell Count 3.36 M/mm3 (3.80-5.20); White Blood Cell Count 10.95 K/mm3 (4.00-11.30)
[2024-10-10 08:47] LABS: Albumin, Blood 1.9 g/dL (3.4-5.0); Albumin/Globulin Ratio 0.5 (0.8-1.8); Bilirubin, Total 0.5 mg/dL (0.1-1.0); Bun/Creatinine Ratio 20.1 (12.0-20.0); Calcium, Blood 7.5 mg/dL (8.5-10.1); Creatinine, Blood 0.55 mg/dL (0.40-1.00); Globulin, Blood 3.7 g/dL (2.2-4.0); Potassium, Blood 3.6 mmol/L (3.5-5.5); Total Protein, Blood 5.6 g/dL (6.4-8.2)
[2024-10-10] MEDS ORDERED: META800 PO (11:33)
[2024-10-10] MEDS ORDERED: FENTANYL1 EA11 TOP (11:34)
[2024-10-10] MEDS ORDERED: DICLOFENAC SOD100 GM TOP (11:34)
[2024-10-10] MEDS ORDERED: SENN187 PO (11:35)
[2024-10-10] MEDS ORDERED: NICO21TP TOP (11:35)
[2024-10-10] MEDS ORDERED: MIRALAX17 GM PO (11:35)
[2024-10-10] MEDS ORDERED: OXYC10ER PO (11:37)
--- NOTE | 2024-10-10 13:11 | NUR ---
DISCHARGE NOTE PT DISCHARGED TO HOME, PICKED UP BY HER MOTHER. IV REMOVED. TELE RETURNED. DISCHARGE INFORMATION AND EDUCATION PROVIDED. NO ACUTE CHANGES PRIOR TO DISCHARGE. MEDICATIONS FAXED TO THE PHARMACY OF HER CHOICE. HARD SCRIPTS PROVIDED.
== END 2024-10-10 13:12 | disposition home or self-care (01) | DRG 640 ==
LOC: ER 12:18 → PCU 19:13 → ERHOLD 19:13 → MEDS 19:13 → PCU 22:48 → MEDS 10-06 17:51 → ENPENDDIS 10-10 13:08 → MEDS 10-10 13:12
PROVIDERS: Family Medicine; Nurse Practitioner Acute Care; Physician Assistant; Student in an Organized Health Care Education/Training Program; ADMIT Internal Medicine
DX: E83.52 Hypercalcemia (principal); G92.8 Other toxic encephalopathy; G93.41 Metabolic encephalopathy; C78.7 Secondary malignant neoplasm of liver and intrahepatic bile duct; C79.51 Secondary malignant neoplasm of bone; C79.31 Secondary malignant neoplasm of brain; J96.11 Chronic respiratory failure with hypoxia; G40.909 Epilepsy, unspecified, not intractable, without status epilepticus; C50.911 Malignant neoplasm of unspecified site of right female breast; E11.9 Type 2 diabetes mellitus without complications; K90.0 Celiac disease; F10.91 Alcohol use, unspecified, in remission; I10 Essential (primary) hypertension; E78.5 Hyperlipidemia, unspecified; K21.9 Gastro-esophageal reflux disease without esophagitis; E66.01 Morbid (severe) obesity due to excess calories; R82.90 Unspecified abnormal findings in urine; F17.210 Nicotine dependence, cigarettes, uncomplicated; G89.3 Neoplasm related pain (acute) (chronic); Z91.041 Radiographic dye allergy status; Z79.84 Long term (current) use of oral hypoglycemic drugs; Z79.52 Long term (current) use of systemic steroids; Z99.81 Dependence on supplemental oxygen; Z86.14 Personal history of Methicillin resistant Staphylococcus aureus infection; Z79.899 Other long term (current) drug therapy; Z79.2 Long term (current) use of antibiotics; Z79.811 Long term (current) use of aromatase inhibitors; Z68.25 Body mass index [BMI] 25.0-25.9, adult
CPT/HCPCS: 36415; 73502; 74176; 80048; 80053; 80069; 81001; 82140; 82306; 82330; 82947; 83605; 83735; 83970; 84100; 84145; 84443; 85025; 87086; 93005; 93010; 94762; 96365; 99285-25; A9270; J0630; J0696; J1650; J2405; J3010; J3489; J7030; J7060

== ENCOUNTER 2024-10-13 03:02 | Day surgery (SDC) | payer OTHER ==
[~2024-10-13 03:02] MED LIST changes: +DICLOFENAC SOD100 GM TOP; +FENTANYL1 EA11 TOP; +META800 PO; +MIRALAX17 GM PO; +NICO21TP TOP; +OXYC10ER PO; +SENN187 PO; +ZYRTEC10 M4 PO
== END 2024-10-13 23:00 | disposition home or self-care (01) ==
LOC: WOUND 03:02
DX: C50.111 Malignant neoplasm of central portion of right female breast (principal); T81.328A Disruption or dehiscence of closure of other specified internal operation (surgical) wound, initial encounter; Y83.8 Other surgical procedures as the cause of abnormal reaction of the patient, or of later complication, without mention of misadventure at the time of the procedure
CPT/HCPCS: G0463

== ENCOUNTER 2024-10-17 14:01 | Inpatient (IN) | payer OTHER ==
[~2024-10-17] VITALS: Ht 167.6 cm; Wt 106.0 kg
[2024-10-17] MEDS ORDERED: NS 1,000 ML IV SCH ×2 (15:00→19:30)
[2024-10-17 15:58] LABS: BASOPHILS ABSOLUTE AUTO 0.06 K/mm3 (0.00-0.23); BASOPHILS PERCENT AUTO 1 % (0-2); EOSINOPHILS ABSOLUTE AUTO 0.01 K/mm3 (0.00-0.68); EOSINOPHILS PERCENT AUTO 0 % (0-6); Hematocrit 36.6 % (33.0-51.0); IMMATURE GRAN PERCENT AUTO 3 % (0-1); LYMPHOCYTES ABSOLUTE AUTO 1.69 K/mm3 (0.84-5.20); LYMPHOCYTES PERCENT AUTO 13 % (21-46); MONOCYTES ABSOLUTE AUTO 1.54 K/mm3 (0.16-1.47); MONOCYTES PERCENT AUTO 12 % (4-13); Mean Corpuscular HGB 28.6 pg (26.0-34.0); Mean Corpuscular HGB Conc 32.8 g/dL (31.5-36.5); Mean Corpuscular Volume 87 fL (80-100); Mean Platelet Volume 9.5 fL (9.1-12.4); NEUTROPHILS ABSOLUTE AUTO 9.35 K/mm3 (1.96-9.15); NEUTROPHILS PERCENT AUTO 72 % (41-73); NRBC ABSOLUTE 0.05 K/mm3 (0.00-0.02); NRBC Auto 0.4 /100 WBC (0.0-0.2); Platelet Count 198 K/mm3 (150-400); RDW Coefficient Variation 20.9 % (11.7-14.2); RDW Standard Deviation 65.5 fL (35.1-46.3); Red Blood Cell Count 4.19 M/mm3 (3.80-5.20); White Blood Cell Count 13.05 K/mm3 (4.00-11.30)
[2024-10-17 16:41] LABS: Albumin, Blood 2.1 g/dL (3.4-5.0); Albumin/Globulin Ratio 0.5 (0.8-1.8); Bun/Creatinine Ratio 22.7 (12.0-20.0); Calcium, Blood 8.3 mg/dL (8.5-10.1); Creatinine, Blood 0.49 mg/dL (0.40-1.00); Globulin, Blood 4.3 g/dL (2.2-4.0); Potassium, Blood 4.3 mmol/L (3.5-5.5); Total Protein, Blood 6.4 g/dL (6.4-8.2)
[2024-10-17 19:10] LABS: Source, Urine Straight Cath
[2024-10-17] MEDS ORDERED: Metoclopramide HCl 5MG / ML 2ML Vial IV PRN (19:30)
[2024-10-17] MEDS ORDERED: Ondansetron HCl 2 MG / ML 2ML Vial IV PRN (19:30)
[2024-10-17 19:41] LABS: Appearance, Urine Clear (Clear); Bilirubin, Urine Neg (Neg); Blood, Urine 1+ (Neg); Color, Urine Yellow (P-Yellow); Glucose Qualitative, Urine Neg (Neg); Ketones, Urine Neg (Neg); Leukocyte Esterase, Urine 1+ (Neg); Nitrite, Urine Neg (Neg); Protein, Urine Neg (Neg); Urobilinogen, Urine NORM (Normal)
[2024-10-17] MEDS ORDERED: OxyCODONE HCL 5 MG TAB PO PRN (19:50)
[2024-10-17] MEDS ORDERED: Lactulose 20 GM/30 ML UDC PO SCH (20:00)
[2024-10-17] MEDS ORDERED: FentaNYL Citrate 50 MCG/ML 2 ML Injection IV ONE (20:00)
[2024-10-17 20:07] LABS: Amorphous Light (0-Heavy); Bacteria Few /hpf; Renal Epithelial Rare /hpf (0-Rare); Squamous Epithelial Cells Few /hpf (Few)
[2024-10-17 20:53] VITALS: BP 136/85
[2024-10-17] MEDS ORDERED: LevETIRAcetam 500 MG Tab PO SCH (21:00)
[2024-10-17] MEDS ORDERED: OxyCODONE HCL 20 MG TABCR PO SCH (21:00)
[2024-10-17] MEDS ORDERED: Valproic Acid 250 MG Cap PO SCH (21:00)
--- NOTE | 2024-10-17 22:24 | NUR ---
ADMISSION NOTE REPORT RECIVED FROM FISH HATCHERY SUPERVISOR @ [facility] 2024 PT ARRIVED TO ROOM @ [facility] 2041, PT SLID OVER BY MEDICAL STAFF TO PCU BED, VSS. MOTHER CAME TO ROOM SHORTLY AFTER ARRIVAL.
[2024-10-17 23:46] VITALS: BP 111/70
[2024-10-18] MEDS ORDERED: LORA2 PO (01:20)
[2024-10-18 03:10] VITALS: BP 120/80
[2024-10-18 05:18] LABS: BASOPHILS ABSOLUTE AUTO 0.03 K/mm3 (0.00-0.23); BASOPHILS PERCENT AUTO 0 % (0-2); EOSINOPHILS ABSOLUTE AUTO 0.02 K/mm3 (0.00-0.68); EOSINOPHILS PERCENT AUTO 0 % (0-6); Hematocrit 28.9 % (33.0-51.0); Hemoglobin 9.5 g/dL (11.5-16.0); IMMATURE GRAN ABSOLUTE AUTO 0.23 K/mm3 (0.00-0.10); IMMATURE GRAN PERCENT AUTO 2 % (0-1); LYMPHOCYTES ABSOLUTE AUTO 2.33 K/mm3 (0.84-5.20); LYMPHOCYTES PERCENT AUTO 19 % (21-46); MONOCYTES ABSOLUTE AUTO 2.33 K/mm3 (0.16-1.47); MONOCYTES PERCENT AUTO 19 % (4-13); Mean Corpuscular HGB Conc 32.9 g/dL (31.5-36.5); Mean Corpuscular Volume 88 fL (80-100); Mean Platelet Volume 9.4 fL (9.1-12.4); NEUTROPHILS ABSOLUTE AUTO 7.07 K/mm3 (1.96-9.15); NEUTROPHILS PERCENT AUTO 59 % (41-73); NRBC ABSOLUTE 0.02 K/mm3 (0.00-0.02); NRBC Auto 0.2 /100 WBC (0.0-0.2); Platelet Count 150 K/mm3 (150-400); RDW Coefficient Variation 20.8 % (11.7-14.2); RDW Standard Deviation 65.8 fL (35.1-46.3); Red Blood Cell Count 3.28 M/mm3 (3.80-5.20); White Blood Cell Count 12.01 K/mm3 (4.00-11.30)
[2024-10-18 05:29] LABS: International Normalized Ratio 1.19; Prothrombin Time Results 12.6 Sec (9.7-11.5)
[2024-10-18 06:00] LABS: Magnesium, Blood 1.9 mg/dL (1.6-2.4)
[2024-10-18 06:02] LABS: Albumin, Blood 1.6 g/dL (3.4-5.0); Albumin/Globulin Ratio 0.5 (0.8-1.8); Bun/Creatinine Ratio 23.3 (12.0-20.0); Calcium, Blood 7.2 mg/dL (8.5-10.1); Creatinine, Blood 0.47 mg/dL (0.40-1.00); Globulin, Blood 3.2 g/dL (2.2-4.0); Potassium, Blood 4.2 mmol/L (3.5-5.5); Total Protein, Blood 4.8 g/dL (6.4-8.2)
--- NOTE | 2024-10-18 06:03 | NUR ---
SHIFT SUMMARY PT IS SOMNOLENT BUT AWAKES TO VERBAL STIMULI &O X2/ ABLE TO STATE NAME AND AND THAT HE IS IN THE HOSPITAL/ NOT ABLE TO STATE WHAT BROUGHT HER IN OR THE YEAR PT HAS STATED 2014 2013 2003 , OBEYS COMMANDS, BED ALARM ON, PT MOVING ALL EXTREMITIES WITH PURPOSE/PAIN WITH MOVEMENT, ASSISTING PT WITH REPOSITIONING. CONTINUOUS SPO2, SPO2 GREATER 90% ON RA WHILE AWAKE/ WHILE SLEEPING PT DESATURINGING TO 80 S%-PLACED PT ON 2L O2 VIA NC/ PT MOTHER STATES THAT THE PT INTERMINTENTLY WEARS 2L O2 AT HOME, LUNGS SOUND CLEAR T/O. CONTINUOUS TELE MONITORING, SINUS RHYTHM 60-70 S, PULSES PRESENT T/O, CAP REFILL WNL, BP STABLE WITH MAP GREATER THAN 65. BOWEL TONES PRESENT IN ALL 4Q, PT HAD BM THIS SHIFT. PUREWICK IN PLACE TO LOW CONTINUOUS SUCTION. PT UNABLE TO VOID ON HER OWN/ BLADDER SCAN / STRAIGHT CATH PERFORMED. PT HAS WOUND TO RIGHT BREAST SEE PHOTOS IN CHART. BED LOWEST POSITION, CALL LIGHT IN REACH, AWAITING TO GIVE REPORT TO ONCOMING RN.
[2024-10-18] MEDS ORDERED: dexAMETHasone 4 MG TAB PO SCH (08:00)
[2024-10-18 08:05] VITALS: BP 123/77
[2024-10-18] MEDS ORDERED: LORazepam 2 MG/ML 1ML Injection IV ONE (08:55)
[2024-10-18] MEDS ORDERED: Polyethylene Glycol 3350 17 gm PO SCH (09:00)
[2024-10-18] MEDS ORDERED: Enoxaparin 40 MG/0.4 ML SYR SC SCH (09:00)
[2024-10-18] MEDS ORDERED: Nicotine 21 MG PATCH TOP SCH (11:00)
[2024-10-18] MEDS ORDERED: FentaNYL 25 MCG Patch TOP ONE (11:35)
[2024-10-18] MEDS ORDERED: Celecoxib 100 MG Cap PO SCH (12:00)
[2024-10-18 15:28] VITALS: BP 134/80
[2024-10-18] MEDS ORDERED: LORazepam 1 MG Tab PO PRN (16:05)
[2024-10-18] MEDS ORDERED: Zolpidem Tartrate 10 MG Tab PO PRN (16:10)
[2024-10-18] MEDS ORDERED: OLANZapine 5 MG Tab PO PRN (16:15)
--- NOTE | 2024-10-18 16:16 | NUR ---
REVIEWED [facility], HOME RX AND LAST HOSPITAL RX D/C LIST WITH PROVIDER AND PT'S MOTHER (COLE). PLACED ADDITIONAL MEDICATION ORDERS PER PROVIDER REQUEST. PT WOKE TO THIS PC RN TALKING WITH HER DAUGHTER AT BEDSIDE. PT ACKNOWLEDGED REMEMBERING PREVIOUS VISITS WITH THIS PC RN PRESENT. SHE IS ORIENTED TO SELF, FAMILY AND FEELING POORLY. PT FREQUENTLY DRIFTED DURING CONVERSATION. SHE WAS ABLE TO INDICATE NEED TO USE BSC AND WAS 1 PERSON ASSIST. PLAN IS TO MEET WITH PT, DTR'S AND MOTHER TOMORROW AT 1100. PRIMARY RN UPDATED.
--- NOTE | 2024-10-18 16:24 | NUR ---
Spiritual care visit conducted. The patient is lying in bed and alert. She immediately tells me about how deeply discouraaged she is by the sudden down turn in her condition and by the massive unrelenting pain. She talks about her family, the support and the challenges of her mother's care and her hopes to push through once again. She then says that she is extremely emotionally and physically tired. I listened empathically and provided anxiety containment and prayer. Patient expresses how good the prayer felt and that she needed it. I will continue to remain availble to patient aand family.
--- NOTE | 2024-10-18 17:16 | NUR ---
SHIFT SUMMARY AT THE START OF THE SHIFT THE PT WAS SOMULENT AND ONLY ORIENTED TO SELF AND PERSON. THE DAY PROGRESSED SHE HAS BEEN FOLLOWING CONVERSATIONS APPRORPAITELY, REMEMBERS SHE IS IN THE HOSPITAL, AND REMAINS ORIENTED TO PERSON AND SELF. SHE STILL GETS CONFUSED IN SOME CONVERSATIONS, ATTEMPTS TO TAKE DRINKS OR PILLS WHEN SHE HAS NOTHING IN HER HAND, AND DOES NOT ALWAYS SAY THINGS APPROPRIATELY. HER SPEECH IS MUMBLED AND SOFT. THE PT IS A SUP. FEED D/T FALLING ASLEEP WITH JELO IN HER MOUTH AND BEING WEAKER. ON TELE THE PT HAS BEEN SR 80'S, AND HAD A SMALL RUN OF BIGEMENY THIS AFTERNOON. BP STABLE. SHE HAS BEEN BETWEEN RA AND 2L NC TO HELP MAINTAIN SP02>93%. THE PT HAS BEEN VOIDING ON THE BSC AND IS A 2P ASSIST W/ FWW AND GB. MULTIPLE BOWEL MOVEMENTS THIS SHIFT. THE PT'S FAMILY HAS BEEN TO BEDSIDE AND UPDATED ON CARE. PALLIATIVE PLANS TO RE-MEET WITH THE FAMILY TOMORROW. TODAY THE PT'S FENTANYL PATCH WAS INCREASED TO 100MCG. SHE IS CURRENTLY WEARING A 75MCG AND A 25MCH PATCH ON HER RIGHT SHOULDER. PAIN MANAGMENT PER EMAR. SEE NOTES FOR ANY UPDATES.
[2024-10-18 20:32] VITALS: BP 144/99
[2024-10-18] MEDS ORDERED: Lactobacil 2-S.Thermo-Bifido 1 1 Cap PO SCH (21:00)
[2024-10-18] MEDS ORDERED: Famotidine 20 MG Tab PO SCH (21:00)
[2024-10-19] VITALS (8 sets, daily range): BP systolic 105–156; BP diastolic 63–96
[2024-10-19 04:15] LABS: BASOPHILS ABSOLUTE AUTO 0.03 K/mm3 (0.00-0.23); BASOPHILS PERCENT AUTO 0 % (0-2); EOSINOPHILS PERCENT AUTO 0 % (0-6); Hematocrit 30.8 % (33.0-51.0); IMMATURE GRAN ABSOLUTE AUTO 0.18 K/mm3 (0.00-0.10); IMMATURE GRAN PERCENT AUTO 2 % (0-1); LYMPHOCYTES ABSOLUTE AUTO 1.88 K/mm3 (0.84-5.20); LYMPHOCYTES PERCENT AUTO 18 % (21-46); MONOCYTES ABSOLUTE AUTO 1.57 K/mm3 (0.16-1.47); MONOCYTES PERCENT AUTO 15 % (4-13); Mean Corpuscular HGB 28.5 pg (26.0-34.0); Mean Corpuscular HGB Conc 32.5 g/dL (31.5-36.5); Mean Corpuscular Volume 88 fL (80-100); Mean Platelet Volume 9.9 fL (9.1-12.4); NEUTROPHILS ABSOLUTE AUTO 6.69 K/mm3 (1.96-9.15); NEUTROPHILS PERCENT AUTO 65 % (41-73); Platelet Count 173 K/mm3 (150-400); RDW Coefficient Variation 21.2 % (11.7-14.2); RDW Standard Deviation 66.8 fL (35.1-46.3); Red Blood Cell Count 3.51 M/mm3 (3.80-5.20); White Blood Cell Count 10.35 K/mm3 (4.00-11.30)
[2024-10-19 05:06] LABS: Albumin, Blood 1.8 g/dL (3.4-5.0); Albumin/Globulin Ratio 0.5 (0.8-1.8); Bun/Creatinine Ratio 29.7 (12.0-20.0); Calcium, Blood 7.6 mg/dL (8.5-10.1); Creatinine, Blood 0.47 mg/dL (0.40-1.00); Globulin, Blood 3.6 g/dL (2.2-4.0); Total Protein, Blood 5.4 g/dL (6.4-8.2)
--- NOTE | 2024-10-19 06:13 | NUR ---
SHIFT SUMMARY PT IS SOMNOLENT BUT AWAKES TO VERBAL STIMULI &O X2/ ABLE TO STATE NAME AND AND THAT HE IS IN THE HOSPITAL/ NOT ABLE TO STATE WHAT BROUGHT HER IN OR THE YEAR PT HAS STATED 2014 AND OCCATIONALY HAS CONVERSATIONS THAT DO NOT MAKE SENSE, OBEYS COMMANDS, BED ALARM ON, PT MOVING ALL EXTREMITIES WITH PURPOSE/PAIN WITH MOVEMENT, ASSISTING PT WITH REPOSITIONING, ABLE TO GET UP ONE PERSON ASSIT WITH FWW. CONTINUOUS SPO2, SPO2 GREATER 90% ON RA, NO SIGNS OF RESPIRATORY DISTRESS NOTED. CONTINUOUS TELE MONITORING, SINUS RHYTHM 60-70 S/ WHILE GETTING UP TO THE COMMODE ON TWO OCCATIONS PT RHYTHM CHANGED TO ACCELERATED IDOVENTRICURLAR RHYTHM/PT APYMPTOMATIC-MD NOTIED, PULSES PRESENT T/O, CAP REFILL WNL, BP STABLE WITH MAP GREATER THAN 65, PT DENEIS CHEST P/P. BOWEL TONES PRESENT IN ALL 4Q, PT HAD LIQUID BM THIS SHIFT. PT ABLE TO VOID IND, UIRNE YELLOW IN COLOR. PT HAS WOUND TO RIGHT BREAST SEE PHOTOS IN CHART. BED LOWEST POSITION, CALL LIGHT IN REACH, AWAITING TO GIVE REPORT TO ONCOMING RN.
--- NOTE | 2024-10-19 09:07 | NUR ---
Pt has been often in an accelerated idioventricular rhythm the past 24 hours. Reported asymptomatic and associated most frequently with activity of toileting, up to chair, etc. Today pt has also had this rhythm, at times bigeminal, not always associated with activity. Blood pressure remains stable and pt reports no symptoms. She is more awake and conversant than she was yesterday; however, she reports and exhibits some confusion. STates she woke up confused because she could not remember how she got here. Minimal anxiety noted, at times tearful. Reports that her pain is 7/10. She was helped back to bed from the chair and BSC, and is drowsy. Bed alarm on. States she follows with a district resource officer and noted metoprolol is on her home med rec; however, not currently taking it.
[2024-10-19] MEDS ORDERED: Crestor40 MG PO (10:59)
[2024-10-19] MEDS ORDERED: TRAM50 PO (11:01)
[2024-10-19] MEDS ORDERED: LACT10SY PO (11:02)
[2024-10-19] MEDS ORDERED: MORP30ER PO (11:03)
[2024-10-19] MEDS ORDERED: Metoprolol Succinate 50 MG TABCR PO SCH (11:55)
--- NOTE | 2024-10-19 13:26 | NUR ---
The pt had a long conversation with palliative care RN as well as Dr. Isbell. Her daughters and her mother are present. Plan is for discharge home on hospice once arrangements are made and optimization of pt condition stable enough for discharge home, possibly tomorrow. The pt is tearful, getting support from palliative care as well as her own family. She is awake and alert today, far more than she was yesterday. Appetite has been good today. Voiding very small amounts at a time.
--- NOTE | 2024-10-19 16:01 | NUR ---
GOALS OF CARE CONVERSATION TOOK PLACE WITH PINKY, BOTH HER DAUGHTERS AND HER MOTHER. PINKY IS A/O X3. SHE LED THE CONVERSATION BY STATING, I DON T HAVE ANY MORE OPTIONS DO I? PT S MOM, COLE RECAPPED HER CONVERSATION WITH [facility] YESTERDAY 10/18/24 STATING, DR. QUINTERO SAID HE TRIED THE THREE TREATMENTS AND HE DOESN T KNOW WHAT ELSE TO DO FOR YOU. PINKY BECAME TEARFUL AND STARTED ASKING QUESTIONS ABOUT HOSPICE. EXTENSIVE EDUCATION PROVIDED RE: HOSPICE AND CHANGING FOCUS OF CARE TO COMFORT RATHER THAN CURRATIVE. PINKY WOULD LIKE TO CONTINUE WITH CURRENT TREATMENT PLAN AND DISCHARGE HOME WITH HOSPICE TOMORROW. PT S DTR, GREGORY VOLUNTEERS FOR [facility]. THEY WOULD LIKE [facility] FIRST CHOICE. REQUEST RELAYED TO CREW MEMBER FOR D/C PLANNING. 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 VALIDATION OF PT S FEELING VERBALIZED AND ENCOURAGED HER TO CONTINUE WITH DAILY ACTIVITIES HER BODY ALLOWS. EDUCATION ON HOSPICE BEING ADDITIONAL SUPPORT SERVICES AND NOT A RESTRICTION TO STAYING HOME WAITING TO . THERAPEUTIC LISTENING PROVIDED TO FAMILY. COLABORATED WITH PRIMARY RN AND PROVIDER. PC TO REMAIN AVAILABLE NEEDED.
--- NOTE | 2024-10-19 18:20 | NUR ---
PT refused evening dose of lactulose; states she already had a very large BM this afternoon.
[2024-10-19] MEDS ORDERED: OxyCODONE HCL 20 MG TABCR PO SCH (21:00)
[2024-10-20 04:02] VITALS: BP 137/89
--- NOTE | 2024-10-20 06:01 | NUR ---
SHIFT SUMMARY PT IS SOMNOLENT BUT AWAKES TO VERBAL STIMULI &O X4, OBEYS COMMANDS, BED ALARM ON, PT MOVING ALL EXTREMITIES WITH PURPOSE/PAIN WITH MOVEMENT, ASSISTING PT WITH REPOSITIONING, ABLE TO GET UP ONE PERSON ASSIT WITH FWW TO BRP. CONTINUOUS SPO2, SPO2 GREATER 90% ON RA, NO SIGNS OF RESPIRATORY DISTRESS NOTED. CONTINUOUS TELE MONITORING, SINUS RHYTHM 40-60 S, BP STABLE WITH MAP GREATER THAN 65, PT DENEIS CHEST P/P. BOWEL TONES PRESENT IN ALL 4Q. PT ABLE TO VOID IND, UIRNE YELLOW IN COLOR. PT HAS WOUND TO RIGHT BREAST SEE PHOTOS IN CHART. BED LOWEST POSITION, CALL LIGHT IN REACH, AWAITING TO GIVE REPORT TO ONCOMING RN.
--- NOTE | 2024-10-20 07:32 | NUR ---
Pt states that she is confused this morning. Asking if she is on schedule for her meds, and if she has received them. Confirmed and reassured pt at time of bedside shift report. She is asking for VOLTAREN for her right shoulder pain. Will also medicate with po meds per eMAR.
[2024-10-20 07:59] VITALS: BP 123/79
[2024-10-20] MEDS ORDERED: Diclofenac Sodium 100 GM TUBE TOP PRN (08:30)
--- NOTE | 2024-10-20 09:58 | NUR ---
spoke with Farhan from hospice; all supplies and equipment being delivered to pt's mom's house at this time, then the pt's mom will come to pick her up. Called Dr. Isbell to request home med rec to be sent home with pt for hospice.
[2024-10-20] MEDS ORDERED: VOLTAREN ARTHRI20 GM TOP (10:41)
[2024-10-20] MEDS ORDERED: Oxycodone HCl20 M1 PO (10:42)
== END 2024-10-20 12:50 | disposition hospice, home (50) | DRG 640 ==
LOC: ER 14:01 → ERHOLD 14:02 → PCU 14:02
PROVIDERS: Emergency Medicine; Internal Medicine; Nurse Practitioner Acute Care; ADMIT Internal Medicine
DX: E83.52 Hypercalcemia (principal); G92.8 Other toxic encephalopathy; C78.7 Secondary malignant neoplasm of liver and intrahepatic bile duct; C50.919 Malignant neoplasm of unspecified site of unspecified female breast; Z51.5 Encounter for palliative care; Z66 Do not resuscitate; L65.9 Nonscarring hair loss, unspecified; E11.9 Type 2 diabetes mellitus without complications; I10 Essential (primary) hypertension; G40.909 Epilepsy, unspecified, not intractable, without status epilepticus; K21.9 Gastro-esophageal reflux disease without esophagitis; F41.9 Anxiety disorder, unspecified; F17.210 Nicotine dependence, cigarettes, uncomplicated; Z79.891 Long term (current) use of opiate analgesic; Z79.899 Other long term (current) drug therapy; Z91.018 Allergy to other foods; Z91.041 Radiographic dye allergy status; Z87.19 Personal history of other diseases of the digestive system
CPT/HCPCS: 36415; 51701; 70450; 70551; 80053; 81001; 82140; 83735; 85025; 85610; 87086; 94762; 96360-59; 96361; 96372; 96374; 99285-25; A9270; G0378; J1650; J2060; J2765; J3010; J7030